=== PATIENT | female | born 1955 | race Caucasian/White ===

== ENCOUNTER 2018-04-22 04:02 | Observation (INO) | payer MEDICARE ==
[2018-04-22 04:28] LABS: #Basophils 0.1 thou/uL (0.0-0.2); #Eosinphils 0.2 thou/uL (0.0-0.7); #Lymphocytes 0.9 thou/uL (1.20-3.40); #Monocytes 0.2 thou/uL (0.11-0.59); #Neutrophils 7.9 thou/uL (1.40-6.50); %Basophils 0.5 % (0.0-1.0); %Eosinophils 2.2 % (0.0-10.0); %Lymphocytes 9.6 % (21.0-51.0); %Monocytes 2.1 % (0.0-10.0); %Neutrophils 85.5 % (42.0-75.0); Hemoglobin 16.9 g/dL (12.0-16.0); Mean Corpuscular HGB CONC 34.1 g/dL (32.0-36.0); Mean Corpuscular Hemoglobin 29.2 pg (27.0-31.0); Mean Corpuscular Volume 85.8 fL (78.0-98.0); Mean Platelet Volume 8.7 fL (7.4-10.4); Platelet Count 299 thou/uL (130-400); RBC Distribution Width 12.2 % (11.5-14.5); Red Blood Cell (RBC) Count 5.78 mill/uL (4.20-5.40); White Blood Cell (WBC) Count 9.2 thou/uL (4.8-10.8)
[2018-04-22] MEDS ORDERED: Ondansetron PF 4 MG/2 ML Vial ONE (04:39)
[2018-04-22] MEDS ORDERED: Morphine 4 MG/ML VIAL ONE (04:39)
[2018-04-22 05:55] LABS: Albumin 3.4 g/dL (3.4-4.8)
[2018-04-22 05:56] LABS: Chloride 100 mmol/L (98-107)
[2018-04-22 05:57] LABS: Calcium 8.8 mg/dL (7.8-10.44); Potassium 3.9 mmol/L (3.5-5.1); Sodium 133 mmol/L (136-145)
[2018-04-22 05:58] LABS: Globulin 2.8 g/dL (2.4-3.5); Glucose 426 mg/dL (80-115); Protein, Total 6.2 g/dL (6.0-8.3)
[2018-04-22 05:59] LABS: Anion Gap 19 mmol/L (10-20); Bilirubin, Total 1.2 mg/dL (0.2-1.2); Carbon Dioxide 18 mmol/L (23-31)
[2018-04-22 06:00] LABS: Alkaline Phosphatase 172 U/L (40-150)
[2018-04-22 06:01] LABS: Calc. Creatinine Clearance 0 mL/min (70-130); Estimated GFR-MDRD 57
[2018-04-22 06:02] LABS: BUN (Urea Nitrogen) 19 mg/dL (9.8-20.1)
[2018-04-22 06:03] LABS: ALT (SGPT) 37 U/L (8-55); AST (SGOT) 111 U/L (5-34)
--- NOTE | 2018-04-22 07:34 | CT ---
CTA OF THE THORAX UTILIZING IV CONTRAST PE PROTOCOL AND 3D REFORMATTED IMAGING: Date: 04/22/18 INDICATION: Dyspnea with chest pain. COMPARISON: Prior single view chest radiograph performed earlier on 04/22/18. FINDINGS: No central or segmental pulmonary embolus is evident. There is hazy ground-glass opacity seen affecting both lungs. There is a 3.0 mm pulmonary nodule within the inferior lingula. There is a 3.0 mm pulmonary nodule le ft lower lobe on image 54 of series 2. There is a 5.0 mm pulmonary nodule within the left lower lobe on image 47 of series 2. There is a 4.0 mm pulmonary nodule in the right lower lobe on image 40 of se jai 2. There is a small, sub-4.0 mm pulmonary nodule in the right lung apex on image 9 of series 2. No confluent air space opacity or pleural effusion is evident. No pathologically enlarged lymph nodes are evident. Visualized upper abdomen reveals no definite acute abnormality. The gallbladder is surgically absent. There is a lobular appearance to the visualized renal parenchyma. No definite acute osseous abnormal ity is evident. IMPRESSION: 1. No central or segmental pulmonary embolus. 2. Nonspecific hazy ground-glass opacity affecting both lungs. This can be seen with atypical infect ious process such as viral illnesses. This also can be seen with hypersensitivity pneumonitis. This c an be seen also with pulmonary edema. There is no overt evidence to suggest heart failure or volume o verload. 3. Nonspecific small pulmonary nodules throughout both lungs. Follow-up CT examination in 6 months i s recommended to document stability. POS: [facility]
[2018-04-22] MEDS ORDERED: Aspirin Chewable 81 MG TAB ONE (07:39)
--- NOTE | 2018-04-22 07:57 | RAD ---
SINGLE VIEW OF THE CHEST: COMPARISON: None. HISTORY: Chest pain. FINDINGS: Single view of the chest shows a normal sized cardiomediastinal silhouette. There is no evidence of c onsolidation, mass, or pleural effusion. Degenerative changes and hardware are seen in the spine. IMPRESSION: No evidence of acute cardiopulmonary disease. POS: [facility]
[2018-04-22 08:23] LABS: Troponin I Less than 0.010 ng/mL (< 0.028)
[2018-04-22] MEDS ORDERED: Acetaminophen 325 MG TAB PO PRN (09:40)
[2018-04-22] MEDS ORDERED: Ondansetron PF 4 MG/2 ML Vial IVP PRN (09:40)
[2018-04-22] MEDS ORDERED: Acetaminophen 650 MG Suppository PR PRN (09:40)
[2018-04-22] MEDS ORDERED: Senokot S 8.6-50 MG TAB PO PRN (09:40)
[2018-04-22] MEDS ORDERED: ADENOSINE 60 MG/20 ML VIAL ONE (10:18)
[2018-04-22] MEDS ORDERED: ISOVUE-370 76%-LOCM 1 ML ONE (10:26)
[2018-04-22 11:32] LABS: Troponin I Less than 0.010 ng/mL (< 0.028)
--- NOTE | 2018-04-22 16:26 | NM ---
RADIONUCLIDE STRESS AND REST MYOCARDIAL PERFUSION SCAN WITH CT ATTENUATION CORRECTION AND SPECT IMAGI NG WITH LEFT VENTRICULAR WALL MOTION EVALUATION AND EJECTION FRACTION: HISTORY: Chest pain. FINDINGS: Very heterogeneous uptake of radiotracer throughout the left ventricular myocardium. Some breast atte nuation on the stress images. No reversibility or perfusion defect reliably demonstrated. QGS analysis of gated SPECT images shows no focal wall motion abnormalities. Adenosine protocol was u sed. Left ventricular ejection fraction calculated at 70%. IMPRESSION: 1. Normal myocardial perfusion scan. 2. Normal LVEF. POS: [facility]
--- NOTE | 2018-04-23 03:04 | SS ---
DATE OF ADMISSION: 04/22/2018 DATE OF DISCHARGE: 04/22/2018 PRIMARY CARE PROVIDER: Britton Royal MD CHIEF COMPLAINT: Chest pain. HISTORY OF PRESENT ILLNESS: Ms. Mora is a pleasant 62-year-old lady, who was seen at [facility] on April 22, 2018. She reports that she has had on and off chest pain over the last 20 years. She reports that it occurs once every few months. She had it today morning. She reports that it was retrosternal, radiating to the back, sharp, 10+ out of 10 at its worst, accompanied by shortness of breath, lightheadedness and nausea. Not accompanied by vomiting. She also reports that she has a chronic neck pain because of a bulged disk. She reports that pain radiates down her left arm. She denies any abdominal pain. She denies any fevers or chills. REVIEW OF SYSTEMS: All other systems reviewed and found to be negative. PAST MEDICAL HISTORY: Hypothyroidism, diabetes mellitus type 2, and hypertension. PAST SURGICAL HISTORY: Partial thyroidectomy, disk repair, titanium plate to neck on left side, and cholecystectomy. PSYCHIATRIC HISTORY: Anxiety. SOCIAL HISTORY: The patient denies tobacco use, alcohol use, or recreational drug use. FAMILY HISTORY: Her father from myocardial infarction. ALLERGIES: ZOLOFT. CURRENT MEDICATIONS: 1. Metformin 1000 mg 2 times a day. 2. Paroxetine 40 mg daily. 3. Atorvastatin 40 mg daily. 4. Levothyroxine 100 mcg daily. PHYSICAL EXAMINATION: GENERAL: On examination, Ms. Mora is awake and alert, not in acute distress. VITAL SIGNS: Blood pressure is 131/74, pulse 99, respiratory rate 18, and oxygen saturation 96% on room air. Earlier, she was tachycardic with a pulse of 124. EYES: No scleral icterus, no conjunctival pallor. ENT: Moist mucosal membranes. No oropharyngeal erythema or exudates. NECK: Supple, nontender, trachea is midline. RESPIRATORY: Accessory muscles of breathing are not active. Chest wall movements are symmetric bilaterally. LUNGS: Clear to auscultation without wheeze, rhonchi, or crepitations. CARDIOVASCULAR: S1 and S2 are heard, regular. Peripheral pulses palpable. No carotid bruit. No pericardial rub. ABDOMEN: Soft, nontender, bowel sounds heard. No hepatomegaly, no splenomegaly. NEUROLOGIC: Cranial nerves 2 through 12 intact, deep tendon reflexes 2+. MUSCULOSKELETAL: Power is 5/5 in all 4 extremities. SKIN: No rashes or subcutaneous nodules. LYMPHATIC: No cervical lymphadenopathy. PSYCHIATRIC: Normal mood, normal affect. The patient is oriented to person, place, and time. LABORATORY DATA: Ms. Mora's labs and investigations were reviewed. I reviewed her electrocardiogram, which shows sinus tachycardia. No ST changes to suggest an acute coronary syndrome. I also reviewed her chest x-ray, which does not show any pulmonary infiltrates. CT angiogram of the chest did not show any central or segmental pulmonary embolus. She has nonspecific small pulmonary nodules throughout the lungs. Followup CT examination in 6 months is recommended by radiologist to document stability. She also had nonspecific hazy ground-glass opacity affecting both lungs, which can be seen with atypical infectious processes such as viral illnesses, hypersensitivity pneumonitis or pulmonary edema. There was no overt evidence to suggest heart failure or volume overload. She has normal white count, elevated hemoglobin of 16.9, normal platelet count, decreased sodium of 133, normal potassium, normal creatinine, elevated glucose of 426, elevated AST of 111, elevated alkaline phosphatase of 172, normal ALT, normal total bilirubin and troponin I that is negative x3. ASSESSMENT AND PLAN: Ms. Mora is a pleasant 62-year-old lady, who was seen at [facility] on April 22, 2018. Her problem list includes : 1. Chest pain: Ms. Mora had CT angiogram of the chest, which did not show any evidence of pulmonary embolism. She went on to have stress test. 2. Abnormal liver function tests: Etiology is unclear. I do not have any old values for reference. She will be advised to follow up with her primary care provider to have the LFTs rechecked. 3. Pulmonary nodules: She will need followup CT scan of the chest in 6 months to evaluate stability of pulmonary nodules. I will advise her to follow up with her primary care provider for the same. 4. Diabetes mellitus type 2: Blood sugars are not optimally controlled. We will add glipizide to her medication regimen. We will advise her to follow up with primary care provider for diabetes management. 5. Dyslipidemia: Continue statin, unless LFTs worsen. I will leave it to the discretion of the primary care provider. HOSPITAL COURSE: Ms. Morgan was admitted to the hospital on observation status. She went on to have nuclear stress test, which was normal myocardial perfusion scan with left ventricular ejection fraction calculated at 70%. She improved clinically in terms of chest pain. She is being discharged home in a stable condition. Many thanks for allowing me to participate in your patient's care. Please feel free to contact me with any questions or concerns. DISCHARGE DESTINATION: Home. Job ID: [id number] [facility]
[2018-04-23] MEDS ORDERED: Aspirin 325 mg Enteric Coated Tablet PO SCH (09:00)
[2018-04-23] MEDS ORDERED: Enoxaparin Sodium 40 MG/0.4 ML SYRINGE SC SCH (09:00)
--- NOTE | 2018-04-25 13:36 | STRESS ---
Acquisition Time: 2018-04-22 13:08:51 Total Exercise Time: 00:04:00 Test Indications: CHEST PAIN Medications: Protocol: ADENOSINE Max HR: 112 BPM 70% of Pred: 159 BPM Max BP: 116/058 mmHG Max Work Load: 1.0 METS RESTING ECG: NORMAL SINUS RHYTHM AT 82 BPM SYMPTOMS: SHORTNESS OF BREATH NORMAL BLOOD PRESSURE RESPONSE ECTOPY: NONE ECG RESPONSE: NO SIGNIFICANT CHANGES INTERPRETATION: AWAIT NUCLEAR IMAGES FOR DEFINITIVE DIAGNOSIS Confirmed by CONG DE DIOS ([id number]), scientific publications editor PALOMO FINE ([id number]) on 04/25/2018 1:35:37 PM Referred By: Bj BEE Confirmed By:CONG DE DIOS
== END 2018-04-22 17:15 | disposition home or self-care (01) ==
LOC: ERS 04:02 → ERHOLD 07:42
PROVIDERS: ADMIT Internal Medicine; ATTEND Internal Medicine
DX: R07.9 Chest pain, unspecified (principal); R91.1 Solitary pulmonary nodule; R94.5 Abnormal results of liver function studies; E11.9 Type 2 diabetes mellitus without complications; E78.5 Hyperlipidemia, unspecified; E03.9 Hypothyroidism, unspecified; I10 Essential (primary) hypertension; Z90.89 Acquired absence of other organs; Z90.49 Acquired absence of other specified parts of digestive tract; Z88.8 Allergy status to other drugs, medicaments and biological substances; Z79.84 Long term (current) use of oral hypoglycemic drugs; Z79.899 Other long term (current) drug therapy; Z98.890 Other specified postprocedural states
CPT/HCPCS: 71045; 71275; 78452; 80053; 84484 ×2; 85025; 93005; 93017; 96361; 96374; 96375; 99285; A9500; 36415; J0153; J2270; J2405; Q9966

== ENCOUNTER 2018-06-08 09:40 | Outpatient (CLI) | payer MEDICARE ==
--- NOTE | 2018-06-08 10:21 | RAD ---
RIGHT SHOULDER THREE VIEWS: History: Acute right shoulder pain. FINDINGS/IMPRESSION: There are degenerative changes in the acromioclavicular joint. No hip fracture, dislocation, or bony destruction is identified. POS: [facility]
--- NOTE | 2018-06-08 11:28 | MRI ---
MRI OF RIGHT SHOULDER PERFORMED WITHOUT CONTRAST ENHANCEMENT: History: Right shoulder pain. FINDINGS: Exam quality is marred by motion artifact. There is moderate arthrosis of the AC joint. There is a high grade undersurface tear involving the chan praspinatus tendon involving more of the anterior fibers. There is only some thin outer bursal sided fibers that appear intact. There is a focal area of approximately 1 cm from its attachment at the gre ater tuberosity where there may actually be a thin pin hole full thickness component. There is a smal l amount of fluid in the subacromial subdeltoid bursa. The infraspinatus tendon does appear intact. T he subscapularis tendon shows tendinosis of the superior fibers and a partial undersurface tear. Due to the motion artifact it is difficult to assess the intraarticular portion of the biceps tendon. It does show tendinosis and findings are suspicious for a slip tear. There is a chronic appearing tear o f the superior labrum associated with this. There are edema changes of the rotator cuff interval with edema changes and effacement of the fat ext ending to beneath the acromion which would suggest an element of capsulitis. Some minimal fluid or ed zahira change associated with the axillary pouch. There are mild arthritic changes of the glenohumeral j oint space seen. There is mild atrophy to the supraspinatus muscle. The remainder of the rotator cuff muscles are fair ly well preserved. IMPRESSION: 1. Somewhat limited examination due to motion artifact. 2. High grade under surface tear of the supraspinatus tendon that involves greater than 50% of the th ickness of the tendon and there is an area approximately 1 cm proximal to the attachment of the great er tuberosity where the bursal fibers become very thin and there may be a pin hole full thickness com ponent to this tear. 3. Partial undersurface tear of the superior fibers of the subscapularis tendon with tendinosis. 4. Chronic appearing slap lesion of the superior labrum. There is tendinosis of the biceps tendon and a possible split tear. It is difficult to assess due to motion. 5. Findings that would suggest an element of capsulitis with edema change in the rotator cuff interva l and some changes also in the region of the axillary pouch. POS: [facility]
== END 2018-06-08 09:41 | disposition home or self-care (01) ==
LOC: SCSMRI 09:40
PROVIDERS: ATTEND Orthopaedic Surgery
DX: M25.511 Pain in right shoulder (principal); M19.011 Primary osteoarthritis, right shoulder; M75.111 Incomplete rotator cuff tear or rupture of right shoulder, not specified as traumatic; M67.813 Other specified disorders of tendon, right shoulder

== ENCOUNTER 2018-08-08 13:23 | Outpatient (CLI) | payer MEDICARE ==
[~2018-08-08 13:23] MED LIST: Gadobenate Dimeglumine 529 MG/1 ML (20ML VIAL) ONE
--- NOTE | 2018-08-08 14:03 | RAD ---
CERVICAL SPINE FOUR VIEWS: 08/08/18 HISTORY: Bilateral neck and shoulder pain times many years. Surgery ten years ago. FINDINGS: There is no prevertebral soft tissue swelling. Predental space is normal. In the neutral position, 2. 4 mm of anterolisthesis of C4 upon C5. Upon flexion, 2.2 mm of anterolisthesis of C4 upon C5. Upon ex tension,1 mm of anterolisthesis of C4 upon C5. Anterior fusion plate with transvertebral body screw a t C5, C6, and C7. Associated disc prosthesis. No perihardware lucency. IMPRESSION: 1. Uncomplicated cervical fusion from C5 through C7. 2. Anterolisthesis of C4 upon C5 as described above. POS: [facility]
--- NOTE | 2018-08-08 14:58 | CT ---
CT CERVICAL SPINE WITHOUT CONTRAST: HISTORY: Bilateral neck and shoulder pain x many years. COMPARISON: None. FINDINGS: There is no craniocervical dissociation. Appropriate alignment of the lateral masses of C1 and C2 as well as the facets. 2.3 mm of anterolisthesis of C3 upon C4. Uncomplicated cervical fusion hardwar e at C5, C6, and C7 with associated prosthesis at C5-C6 and C6-C7. Straightening of normal cervical lordosis is noted. The visualized soft tissue neck structures are unremarkable. Upper mediastinum and lung apices are a lso unremarkable. Limited evaluation of the contents of the central spinal canal and neural foramen due to technique. C2-C3: There is a broad-based disk-osteophyte complex. No significant central canal stenosis. Righ t neural foramen is patent. Mild left foraminal narrowing due to uncovertebral and facet hypertrophy . C3-C4 Broad-based disk-osteophyte complex causes mass effect upon the ventral cord. Mild central ca nal stenosis. Moderate to severe right and left foraminal narrowing due to uncovertebral hypertrophy as well as left facet hypertrophy. C4-C5: Broad-based disk-osteophyte complex abuts the thecal sac. There is some mass effect and defo rmity of the cervical cord. Mild to moderate central canal stenosis. Right neural foramen is patent . Left neural foramen is minimally narrowed due to uncovertebral and facet hypertrophy. C5-C6: There is a broad-based osteophyte ridge with a right paracentral and left paracentral compone nt. There is deformity of the midline aspect of the cord. Mild central canal stenosis. Mild to mod erate right and mild left foraminal narrowing due to uncovertebral hypertrophy. C6-C7: There is a central osteophyte that abuts and probably deforms the ventral cord. Mild central canal stenosis. Moderate bilateral foraminal narrowing due to uncovertebral hypertrophy. C7-T1: No significant central canal stenosis. Neural foramina are patent bilaterally. IMPRESSION: 1. Degenerative changes of the cervical spine as above. 2. Cervical fusion hardware as described above. POS: [facility]
--- NOTE | 2018-08-09 10:11 | MRI ---
MRI CERVICAL SPINE WITH AND WITHOUT CONTRAST: HISTORY: Cervical radiculopathy. Neck pain. Pain radiates to both shoulders. Previous cervical fusion. COMPARISON: None. FINDINGS: Anterior fusion plate with transvertebral body screw at C5, C6, and C7. There is associated metallic susceptibility artifact. Disk prostheses at C5-C6 and C6-C7. Straightening of normal cervical lordosis may, in part, be due to patient position. There is 3.2 mm of anterolisthesis of C4 upon C5. Appropriate T1 marrow signal intensity of the cervical vertebrae. No significant STIR hyperintensity to suggest vertebral body edema or ligamentous injury. The visualized brain parenchyma, cervicomedullary junction, cervical cord, and upper thoracic cord lagos ve normal size and signal intensity. Post contrast images do not demonstrate any abnormal enhancement with regard to the osseous structure s, brain parenchyma, and spinal cord. C2-C3: No significant central canal stenosis. The neural foramina are patent. Mild left facet hype rtrophy. C3-C4: Broad-based disk osteophyte complex causes mass effect upon the thecal sac. Mild to moderate central canal stenosis. There is some deformity and flattening of the ventral cord. No cord signal abnormality. Moderate bilateral foraminal narrowing due to uncovertebral hypertrophy. There is als o hypertrophy of the left facet. C4-C5: Limited evaluation due to motion degradation and metallic susceptibility artifact. Based on the sagittal images, no evidence of high-grade stenosis. The neural foramina cannot be adequately as sessed. Please refer to the CT performed on 08/08/2017 for further details with regard to the neural foramina. C5-C6: No high-grade central canal stenosis or high-grade foraminal narrowing. C6-C7: There is a central osteophyte ridge with moderate central canal stenosis. There is deformity of the cervical cord without cord signal abnormality. Mild bilateral foraminal narrowing. C7-T1: No evidence of high-grade central canal stenosis or high-grade foraminal narrowing. IMPRESSION: 1. Cervical fusion from C5 through C7. Varying degrees of central canal stenosis and neural foramin al narrowing, as detailed above. 2. No abnormal signal intensity with regard to the visualized spinal cord. POS: [facility]
== END 2018-08-08 13:24 | disposition home or self-care (01) ==
LOC: SCSMRI 13:23
PROVIDERS: ATTEND Surgery
DX: M47.812 Spondylosis without myelopathy or radiculopathy, cervical region (principal); M43.12 Spondylolisthesis, cervical region; M48.02 Spinal stenosis, cervical region; Z98.1 Arthrodesis status
CPT/HCPCS: 72050; 72125; 72156; 82565; A9577

== ENCOUNTER 2019-01-09 13:54 | Outpatient (CLI) | payer MEDICARE ==
--- NOTE | 2019-01-09 15:43 | ULT ---
Exam: Transabdominal and endovaginal pelvic ultrasound HISTORY:Familial history of ovarian cancer COMPARISON: None TECHNIQUE: Transabdominal and endovaginal imaging of the pelvis is performed. Ovaries are interrogate d with grayscale, color flow, Doppler imaging and spectral wave form analysis FINDINGS: Uterus: Echogenic focus in the left aspect the uterus measuring 0.4 x 0.5 x 0.6 cm. Nonspecific calci fication. Uterus measurin.8 x 3.1 x 3.4 cm. Endometrium: Heterogeneous echotexture. Endometrium diameter: 0.5 cm. Incidental nabothian cyst. Free fluid: None Right ovary: Normal echotexture Right ovary measurement: 1.2 x 1.2 x 1.8 cm Left ovary: Not appreciated Left ovary measurements: Not applicable Ovarian Doppler: There is vascular flow to the right ovary. IMPRESSION: 1. Possible calcified uterine leiomyoma. 2. Nonvisualization of the left ovary. Given family history no history, nonemergent pelvic MRI is rec ommended
--- NOTE | 2019-01-27 16:50 | MMO ---
Bilateral MAMMO Bilat Screen [facility]. CLINICAL HISTORY: Patient is 63 years old and is seen for screening. The patient has the following family history of breast cancer: niece. The patient has a history of needle biopsy in 2010. VIEWS: The views performed were: bilateral craniocaudal with tomosynthesis and bilateral mediolateral oblique with tomosynthesis. FILMS COMPARED: The present examination has been compared to a prior imaging study performed at [facility] on 07/06/2012. This study has been interpreted with the assistance of computer-aided detection. MAMMOGRAM FINDINGS: There are scattered fibroglandular densities. Finding 1: There are stable benign appearing calcifications seen in both breasts. Finding 2: There is a stable biopsy clip seen in the left breast. There are no suspicious masses, suspicious calcifications, or new areas of architectural distortion. IMPRESSION: THERE IS NO MAMMOGRAPHIC EVIDENCE OF MALIGNANCY. A ROUTINE FOLLOW-UP MAMMOGRAM IN 1 YEAR IS RECOMMENDED. THE RESULTS OF THIS EXAM WERE SENT TO THE PATIENT. ACR BI-RADS Category 2 - Benign finding MAMMOGRAPHY NOTE: 1. A negative mammogram report should not delay a biopsy if a dominant of clinically suspicious mass is present. 2. Approximately 10% to 15% of breast cancers are not detected by mammography. 3. Adenosis and dense breasts may obscure an underlying neoplasm. Reported by: HERMANN NAZARIO MD Electonically Signed: [id number]
== END 2019-01-09 13:55 | disposition home or self-care (01) ==
LOC: BICULT 13:54
PROVIDERS: ATTEND Internal Medicine
DX: Z12.31 Encounter for screening mammogram for malignant neoplasm of breast (principal); Z80.41 Family history of malignant neoplasm of ovary; Z80.3 Family history of malignant neoplasm of breast
CPT/HCPCS: 76856; 77063; 77067

== ENCOUNTER 2019-09-11 14:25 | Outpatient (CLI) | payer MEDICARE ==
--- NOTE | 2019-09-11 16:23 | MRI ---
MRI LEFT WRIST PERFORMED WITHOUT CONTRAST ENHANCEMENT: History: Patient complains of medial and lateral sided pain. FINDINGS: The carpal tunnel region appears unremarkable. The scapholunate, lunotriquetral ligaments appear intact. Triangular fibrocartilage slightly irregular in appearance but I do not see any definite signs of a t ear. There are edema changes within the first dorsal compartment with a thickened appearance to the APL an d EPB tendons with associated tenosynovitis change. Changes are compatible with De Quervain's tenosyn ovitis. In addition there are some changes of mild distal intersection syndrome with some mild tenosynovitis changes of the ECRB and ECRL tendons and the EP tendon. In addition there are some minimal tenosynovi tis changes of the third dorsal compartment. IMPRESSION: 1. Findings compatible with De Quervain's tenosynovitis. 2. Findings suggesting a mild distal intersection syndrome with some mild tenosynovitis change of the second dorsal compartment. 3. Minimal tenosynovitis changes of the third dorsal compartment also incidentally noted. POS: [facility]
== END 2019-09-11 14:26 | disposition home or self-care (01) ==
LOC: BICMRI 14:25
PROVIDERS: ATTEND Orthopaedic Surgery
DX: M25.532 Pain in left wrist (principal)

== ENCOUNTER 2020-12-14 22:29 | Inpatient (IN) | payer MEDICARE ==
[2020-12-14] MEDS ORDERED: Fentanyl CADD 100 ML IV SCH (22:45)
[2020-12-14 22:58] LABS: Actual Bicarbonate (HCO3a) 3.3 mEq/L (22-28); Carboxyhemoglobin (COHb) 0.1 gm% (0.0-3.0); Hemoglobin (Hb) 10.9 g/dL (12.0-16.0); O2 Tension (PaO2), arterial 284.6 mmHg (> 80.0)
[2020-12-14 22:59] LABS: Analyzer IN Cardio ER; Calcium, Ionized (arterial) 1.27 mmol/L (1.12-1.30); Potassium - ABG Lab 5.74 mmol/L (3.70-5.30)
[2020-12-14 23:00] LABS: Base Excess (BEa) -30.9 mEq/L (-2.0 to +3.0); CO2 Tension 23.8 mmHg (35.0-45.0); Puncture Site LRA; pH, Arterial 6.76 (7.35-7.45)
[2020-12-14 23:13] LABS: ALT (SGPT) 20 U/L (8-55); AST (SGOT) 27 U/L (5-34); Albumin 2.6 g/dL (3.4-4.8); Alkaline Phosphatase 92 U/L (40-110); BUN (Urea Nitrogen) 80 mg/dL (9.8-20.1); Bilirubin, Total 0.3 mg/dL (0.2-1.2); Calc. Creatinine Clearance 0 mL/min (70-130); Calcium 9.2 mg/dL (7.8-10.44); Chloride 102 mmol/L (98-107); Globulin 1.9 g/dL (2.4-3.5); Potassium 6.2 mmol/L (3.5-5.1); Protein, Total 4.5 g/dL (5.8-8.1); Sodium 126 mmol/L (136-145)
[2020-12-14 23:16] LABS: Carbon Dioxide Less than 8 mmol/L (23-31); Glucose 652 mg/dL (80-115)
[2020-12-14] MEDS ORDERED: INSULIN REGULAR IN 0.9 % NACL 100 UNIT/100 ML BAG ONE (23:19)
[2020-12-14 23:22] LABS: Band 20 % (5-11); Hemoglobin 10.9 g/dL (12.0-16.0); Lymphocytes 21 % (21-51); MDiff Complete? YES; Mean Corpuscular HGB CONC 31.6 g/dL (32.0-36.0); Mean Corpuscular Hemoglobin 29.6 pg (27.0-31.0); Mean Corpuscular Volume 93.8 fL (78.0-98.0); Mean Platelet Volume 8.9 fL (7.4-10.4); Monocytes 4 % (0-10); Neutrophil 55 % (42-75); Platelet Count 377 thou/uL (130-400); RBC Distribution Width 11.7 % (11.5-14.5); Red Blood Cell (RBC) Count 3.66 mill/uL (4.20-5.40); White Blood Cell (WBC) Count 24.4 thou/uL (4.8-10.8)
[2020-12-14] MEDS ORDERED: Hydrocortisone Sod Succ/PF 100 mg/2 ml Vial ONE (23:28)
[2020-12-14 23:39] LABS: CKMB 9.8 ng/mL (0-6.6)
[2020-12-15] MEDS ORDERED: metroNIDAZOLE 500 MG/100 ML BAG ONE (01:30)
[2020-12-15 02:23] LABS: ALT (SGPT) 22 U/L (8-55); AST (SGOT) 32 U/L (5-34); Albumin 2.7 g/dL (3.4-4.8); Alkaline Phosphatase 100 U/L (40-110); BUN (Urea Nitrogen) 84 mg/dL (9.8-20.1); Bilirubin, Total 0.4 mg/dL (0.2-1.2); Calc. Creatinine Clearance 0 mL/min (70-130); Calcium 8.4 mg/dL (7.8-10.44); Carbon Dioxide Less than 8 mmol/L (23-31); Chloride 97 mmol/L (98-107); Protein, Total 4.7 g/dL (5.8-8.1); Sodium 129 mmol/L (136-145)
[2020-12-15 02:26] LABS: Glucose 716 mg/dL (80-115)
[2020-12-15] MEDS ORDERED: Electrolyte Replacement Protocol 1 EACH IVPB PRN (02:42)
[2020-12-15] MEDS ORDERED: Sodium Chloride 0.9% 1,000 ML IV PRN ×4 (02:42)
[2020-12-15] MEDS ORDERED: Dextrose 5 %-0.45 % NaCl 1,000 ML IV PRN (02:42)
[2020-12-15] MEDS ORDERED: NS 0.9% w/ 20 MEQ KCL 1,000 ML IV PRN ×2 (02:42)
[2020-12-15] MEDS ORDERED: D5 1/2 NS w/20 mEq KCL 1,000 ML IV PRN (02:42)
[2020-12-15] MEDS ORDERED: Sodium Bicarbonate 100 MEQ in Dextrose 5% in Water 1,000 ML IV SCH (02:45)
[2020-12-15] MEDS ORDERED: Sodium Bicarb 50 MEQ/50 ML Abboject 8.4% SYRINGE IVP SCH ×2 (02:45→05:15)
[2020-12-15] MEDS ORDERED: Ondansetron ODT 4 MG TAB PO PRN (02:58)
[2020-12-15] MEDS ORDERED: Acetaminophen 325 MG TAB PO PRN (02:58)
[2020-12-15] MEDS ORDERED: Ondansetron PF 4 MG/2 ML Vial IVP PRN (02:58)
[2020-12-15] MEDS ORDERED: Sodium Bicarbonate 100 MEQ in Sodium Chloride 0.45% 1,000 ML IV SCH (03:00)
[2020-12-15] MEDS ORDERED: Norepinephrine 8 MG/0.9% NS 250 ML IVPB SCH (03:00)
[2020-12-15] MEDS ORDERED: Sodium Bicarbonate 150 MEQ in Sterile Water Injection 1,000 ML IV SCH (03:00)
[2020-12-15 03:52] LABS: BUN (Urea Nitrogen) 88 mg/dL (9.8-20.1); Calc. Creatinine Clearance 0 mL/min (70-130); Calcium 8.3 mg/dL (7.8-10.44); Chloride 97 mmol/L (98-107); Potassium 6.5 mmol/L (3.5-5.1); Sodium 129 mmol/L (136-145)
[2020-12-15 03:54] LABS: Carbon Dioxide Less than 8 mmol/L (23-31); Glucose 739 mg/dL (80-115)
[2020-12-15 04:22] LABS: Hemoglobin 12.2 g/dL (12.0-16.0); Mean Corpuscular HGB CONC 32.2 g/dL (32.0-36.0); Mean Platelet Volume 8.7 fL (7.4-10.4); Platelet Count 392 thou/uL (130-400); RBC Distribution Width 11.7 % (11.5-14.5); White Blood Cell (WBC) Count 34.7 thou/uL (4.8-10.8)
[2020-12-15 04:27] LABS: Lactic Acid 14.9 mmol/L (0.5-2.2)
[2020-12-15] MEDS ORDERED: Sodium Chloride 0.9% 1,000 ML IV SCH (04:30)
[2020-12-15] MEDS ORDERED: Calcium Chloride 1 GM/10 ML Abboject SYRINGE IVP SCH (05:00)
[2020-12-15] MEDS: HUMULIN R 100 UNITS in Sodium Chloride 0.9% 100 ML IVPB SCH (05:27)
[2020-12-15 05:30] LABS: Glucose 689 mg/dL (80-115)
[2020-12-15 06:08] LABS: HBSAg Index 0.25 S/CO (0-0.99); Hep B Core Total Ab Non-Reactive (NonReactive); Hep B Core Total Index 0.08 S/CO (0-0.79); Hep B Surf Ag Non-Reactive S/CO (NonReactive); Hep C IgG Ab Non-Reactive (NonReactive); Hep C Index 0.07 S/CO (0-0.79)
[2020-12-15 06:10] LABS: HBSAB Concentration 237.73 mIU/mL; Hep B Surf AB Reactive (NonReactive)
[2020-12-15 06:29] LABS: Glucose 515 mg/dL (80-115)
[2020-12-15 06:56] LABS: Band 18 % (5-11); Lymphocytes 7 % (21-51); MDiff Complete? YES; Monocytes 5 % (0-10); Neutrophil 70 % (42-75)
[2020-12-15] MEDS: Vasopressin 20 UNIT, Admixture Fee 1 EACH in Sodium Chloride 0.9% 50 ML IV SCH ×2 (07:56→11:11)
[2020-12-15 08:41] LABS: Anion Gap 26 mmol/L (10-20); BUN (Urea Nitrogen) 52 mg/dL (9.8-20.1); Calc. Creatinine Clearance 20 mL/min (70-130); Calcium 8.4 mg/dL (7.8-10.44); Carbon Dioxide 17 mmol/L (23-31); Chloride 100 mmol/L (98-107); Glucose 241 mg/dL (80-115); Sodium 139 mmol/L (136-145)
[2020-12-15 08:51] LABS: Lactic Acid 12.5 mmol/L (0.5-2.2)
[2020-12-15] MEDS ORDERED: Albumin 25% 25 GM/100 ML BOT IVPB PRN (08:51)
[2020-12-15] MEDS: Heparin 5,000 UNITS/ML VIAL SC SCH ×2 (09:00→12:41)
[2020-12-15] MEDS ORDERED: Heparin 10,000 UNITS/ 10 ML VIAL ONE (09:14)
[2020-12-15] MEDS: Norepinephrine 8 MG in Dextrose 5% in Water 242 ML IVPB SCH (10:20)
[2020-12-15 11:11] LABS: Actual Bicarbonate (HCO3a) 15.6 mEq/L (22-28); Base Excess (BEa) -5.1 mEq/L (-2.0 to +3.0); Calcium, Ionized (arterial) 1.04 mmol/L (1.12-1.30); Carboxyhemoglobin (COHb) 0.3 gm% (0.0-3.0); Hemoglobin (Hb) 11.6 g/dL (12.0-16.0); Potassium - ABG Lab 4.06 mmol/L (3.70-5.30); Puncture Site LBA; pH, Arterial 7.53 (7.35-7.45)
[2020-12-15] MEDS ORDERED: Vancomycin HCl 1.25 GM in Sodium Chloride 0.9% 250 ML 250 ML IVPB SCH (11:45)
[2020-12-15] MEDS ORDERED: Vancomycin HCl 500 MG in Sodium Chloride 0.9% 100 ML IVPB SCH (11:45)
[2020-12-15] MEDS ORDERED: Vancomycin HCl 750 MG in Sodium Chloride 0.9% 250 ML 250 ML IVPB SCH (11:45)
[2020-12-15] MEDS ORDERED: Vancomycin 1 GM in Premix Bag 1 BAG IVPB SCH ×2 (11:45→21:00)
[2020-12-15] MEDS: Hydrocortisone Sod Succ/PF 100 mg/2 ml Vial IVP SCH ×2 (12:38→17:39)
[2020-12-15 12:48] LABS: Lactic Acid 10.9 mmol/L (0.5-2.2)
[2020-12-15 13:04] LABS: Anion Gap 26 mmol/L (10-20); BUN (Urea Nitrogen) 51 mg/dL (9.8-20.1); Calc. Creatinine Clearance 19 mL/min (70-130); Calcium 8.2 mg/dL (7.8-10.44); Carbon Dioxide 17 mmol/L (23-31); Chloride 97 mmol/L (98-107); Glucose 137 mg/dL (80-115); Potassium 4.3 mmol/L (3.5-5.1); Sodium 136 mmol/L (136-145)
[2020-12-15] MEDS ORDERED: Cefepime 1 GM in Sodium Chloride 0.9% 100 ML IVPB SCH (14:00)
[2020-12-15] MEDS ORDERED: Sodium Bicarbonate 75 MEQ in Sodium Chloride 0.45% 1,000 ML IV SCH (14:30)
[2020-12-15] MEDS ORDERED: Enoxaparin Sodium 80 MG/0.8 ML SYRINGE SC SCH (15:00)
[2020-12-15] MEDS: Albumin 25% 25 GM/100 ML BOT IVPB SCH ×2 (16:55→22:03)
[2020-12-15] MEDS ORDERED: FLU VACC QS2021-22(6MOS UP)/PF 60 MCG/0.5 ML SYRINGE IM ONE (18:15)
[2020-12-15] MEDS ORDERED: Prevnar 13-Val Conj/PF 0.5 ML SYRINGE IM ONE (18:15)
[2020-12-15 18:50] LABS: Anion Gap 28 mmol/L (10-20); BUN (Urea Nitrogen) 59 mg/dL (9.8-20.1); Calc. Creatinine Clearance 17 mL/min (70-130); Calcium 7.9 mg/dL (7.8-10.44); Carbon Dioxide 17 mmol/L (23-31); Chloride 95 mmol/L (98-107); Glucose 172 mg/dL (80-115); Potassium 4.5 mmol/L (3.5-5.1); Sodium 135 mmol/L (136-145)
[2020-12-15] MEDS: Acetaminophen 650 MG Suppository PR PRN (22:20)
[2020-12-16] MEDS: Hydrocortisone Sod Succ/PF 100 mg/2 ml Vial IVP SCH ×4 (00:38→16:43)
[2020-12-16] MEDS ORDERED: Sodium Bicarbonate 150 MEQ in Dextrose 5% in Water 1,000 ML IV SCH (01:00)
[2020-12-16 04:32] LABS: Lactic Acid 3.2 mmol/L (0.5-2.2)
[2020-12-16 04:48] LABS: AST (SGOT) 43 U/L (5-34); Anion Gap 23 mmol/L (10-20); Bilirubin, Total 0.9 mg/dL (0.2-1.2); Carbon Dioxide 21 mmol/L (23-31); Chloride 93 mmol/L (98-107); Cholesterol 35 mg/dl (< 200 Desired); Potassium 4.2 mmol/L (3.5-5.1); Protein, Total 4.8 g/dL (5.8-8.1); Sodium 133 mmol/L (136-145); Triglycerides 107 mg/dL (Less than 150)
[2020-12-16 04:58] LABS: ALT (SGPT) 22 U/L (8-55); Albumin 3.4 g/dL (3.4-4.8); Alkaline Phosphatase 63 U/L (40-110); BUN (Urea Nitrogen) 65 mg/dL (9.8-20.1); Calc. Creatinine Clearance 16 mL/min (70-130); Globulin 1.4 g/dL (2.4-3.5); Glucose 250 mg/dL (80-115); HDL Cholesterol 8 mg/dL (>60 Neg Risk)
[2020-12-16 05:08] LABS: LDL Cholesterol, Calculated 6 mg/dL
[2020-12-16] MEDS: Albumin 25% 25 GM/100 ML BOT IVPB SCH (05:10)
[2020-12-16 05:11] LABS: Lipase 1199 U/L (8-78)
[2020-12-16] MEDS: HUMULIN R 100 UNITS in Sodium Chloride 0.9% 100 ML IVPB SCH (05:27)
[2020-12-16 05:28] LABS: Cardiac Risk 4.4 (Less than 4.5)
[2020-12-16] MEDS: Norepinephrine 8 MG in Dextrose 5% in Water 242 ML IVPB SCH (05:28)
[2020-12-16 05:30] LABS: #Lymphocytes 0.8 thou/uL (1.20-3.40); #Monocytes 0.6 thou/uL (0.11-0.59); #Neutrophils 11.1 thou/uL (1.40-6.50); %Lymphocytes 6.4 % (21.0-51.0); %Monocytes 5.1 % (0.0-10.0); %Neutrophils 88.5 % (42.0-75.0); Mean Corpuscular Hemoglobin 29.7 pg (27.0-31.0); Mean Corpuscular Volume 82.4 fL (78.0-98.0); Mean Platelet Volume 8.1 fL (7.4-10.4); Platelet Count 79 thou/uL (130-400); RBC Distribution Width 11.9 % (11.5-14.5); Red Blood Cell (RBC) Count 3.04 mill/uL (4.20-5.40); White Blood Cell (WBC) Count 12.6 thou/uL (4.8-10.8)
[2020-12-16 05:37] LABS: Platelet Morphology Comment Appears Decreased
[2020-12-16 07:21] LABS: Actual Bicarbonate (HCO3a) 22.2 mEq/L (22-28); Base Excess (BEa) -0.5 mEq/L (-2.0 to +3.0); CO2 Tension 29.3 mmHg (35.0-45.0); Calcium, Ionized (arterial) 0.86 mmol/L (1.12-1.30); Carboxyhemoglobin (COHb) 0.1 gm% (0.0-3.0); Hemoglobin (Hb) 9.1 g/dL (12.0-16.0); O2 Tension (PaO2), arterial 115.3 mmHg (> 80.0); Potassium - ABG Lab 3.88 mmol/L (3.70-5.30)
[2020-12-16 07:32] LABS: Puncture Site LBA
[2020-12-16 07:33] LABS: ALV-art Gradient 133.275 mmHg (0-20)
[2020-12-16 09:19] LABS: Vancomycin, Trough 30.3 ug/mL
[2020-12-16] MEDS ORDERED: Heparin 10,000 UNITS/ 10 ML VIAL ONE (10:24)
[2020-12-16] MEDS ORDERED: Dextrose 5% in Water 1,000 ML IV PRN (10:27)
[2020-12-16] MEDS ORDERED: Dextrose 50% Abboject 50 ML SYRINGE SLOW IVP PRN (10:27)
[2020-12-16] MEDS ORDERED: Sodium Chloride 0.45% 1,000 ML IV SCH (10:45)
[2020-12-16] MEDS: Sodium Chloride 0.45% 1,000 ML IV SCH ×3 (10:55→20:53)
[2020-12-16] MEDS ORDERED: Fentanyl BOLUS 250 ML IVPB PRN (11:15)
[2020-12-16 11:36] LABS: Fibrinogen 256 mg/dL (253-463)
[2020-12-16 11:37] LABS: INR-International Normal Ratio 1.5; PTT 44.9 sec (22.9-36.1); Prothrombin Time 18.1 sec (12.0-14.7)
[2020-12-16 11:38] LABS: FSP-Qualitative ABNORMAL (Normal)
[2020-12-16 11:45] LABS: FSP-Semiquantitative >320 mcg/mL (Less than 5)
[2020-12-16 11:52] LABS: D-Dimer Test Greater than 20.00 *mcg/mL (0.27-0.43)
[2020-12-16 12:00] LABS: Platelet Count 73 thou/uL (130-400)
[2020-12-16] MEDS ORDERED: Enoxaparin Sodium 80 MG/0.8 ML SYRINGE SC SCH (15:00)
[2020-12-16] MEDS: Cefepime 0.5 GM, Admixture Fee 1 EACH in Sodium Chloride 0.9% 100 ML IVPB SCH (16:40)
[2020-12-17] MEDS: Hydrocortisone Sod Succ/PF 100 mg/2 ml Vial IVP SCH ×4 (00:41→17:35)
[2020-12-17] MEDS: Acetaminophen 650 MG Suppository PR PRN (00:41)
[2020-12-17] MEDS: Sodium Chloride 0.45% 1,000 ML IV SCH ×6 (01:57→22:22)
[2020-12-17] MEDS: HumaLOG 300 UNITS/3 ML VIAL SC PRN ×4 (04:35→22:41)
[2020-12-17 04:54] LABS: Hemoglobin 8.6 g/dL (12.0-16.0); Mean Corpuscular Hemoglobin 29.8 pg (27.0-31.0); Mean Corpuscular Volume 84.9 fL (78.0-98.0); Mean Platelet Volume 9.2 fL (7.4-10.4); Platelet Count 78 thou/uL (130-400); Red Blood Cell (RBC) Count 2.88 mill/uL (4.20-5.40); White Blood Cell (WBC) Count 16.9 thou/uL (4.8-10.8)
[2020-12-17 05:18] LABS: ALT (SGPT) 17 U/L (8-55); AST (SGOT) 32 U/L (5-34); Albumin 2.9 g/dL (3.4-4.8); Alkaline Phosphatase 64 U/L (40-110); Anion Gap 25 mmol/L (10-20); BUN (Urea Nitrogen) 30 mg/dL (9.8-20.1); Bilirubin, Total 0.6 mg/dL (0.2-1.2); Calc. Creatinine Clearance 28 mL/min (70-130); Calcium 5.6 mg/dL (7.8-10.44); Carbon Dioxide 17 mmol/L (23-31); Chloride 95 mmol/L (98-107); Globulin 1.4 g/dL (2.4-3.5); Glucose 249 mg/dL (80-115); Lipase 278 U/L (8-78); Potassium 3.7 mmol/L (3.5-5.1); Protein, Total 4.3 g/dL (5.8-8.1); Sodium 133 mmol/L (136-145)
[2020-12-17 05:26] LABS: Band 46 % (5-11); Lymphocytes 3 % (21-51); MDiff Complete? YES; Neutrophil 51 % (42-75); Platelet Morphology Comment Appears Decreased
[2020-12-17] MEDS ORDERED: Calcium Gluc 4.6 MEQ/10 ML (100 MG/ML) SLOW IVP SCH (06:00)
[2020-12-17 08:09] LABS: Vancomycin, Random 15.1 ug/mL (See Comment)
[2020-12-17] MEDS ORDERED: Sodium Chloride 0.9% (PF) 10 ML VIAL FS PRN (12:00)
[2020-12-17] MEDS: Calcium Carbonate 600 MG + Vit D TAB PO SCH ×2 (14:44→22:21)
[2020-12-17] MEDS ORDERED: Lorazepam 2 MG/ML VIAL SLOW IVP PRN (15:23)
[2020-12-17] MEDS: Cefepime 0.5 GM, Admixture Fee 1 EACH in Sodium Chloride 0.9% 100 ML IVPB SCH (16:08)
[2020-12-17 18:15] LABS: Anion Gap 18 mmol/L (10-20); BUN (Urea Nitrogen) 34 mg/dL (9.8-20.1); Calc. Creatinine Clearance 30 mL/min (70-130); Carbon Dioxide 21 mmol/L (23-31); Chloride 95 mmol/L (98-107); Glucose 244 mg/dL (80-115); Magnesium 1.2 mg/dL (1.6-2.6); Potassium 3.1 mmol/L (3.5-5.1); Sodium 131 mmol/L (136-145)
[2020-12-17 18:18] LABS: Phosphorus 1.9 mg/dL (2.3-4.7)
[2020-12-17 18:30] LABS: Calcium 5.5 mg/dL (7.8-10.44)
[2020-12-17] MEDS ORDERED: Potassium Chloride 20 MEQ TAB PO SCH (18:30)
[2020-12-17] MEDS ORDERED: Potassium Chloride 80 MEQ in Premix Bag 1 BAG IVPB SCH (18:45)
[2020-12-17] MEDS: Potassium Chloride 40 MEQ in Premix Bag 1 BAG IVPB SCH ×2 (22:24→23:59)
[2020-12-18] MEDS: Norepinephrine 8 MG in Dextrose 5% in Water 242 ML IVPB SCH (00:17)
[2020-12-18] MEDS: Sodium Chloride 0.45% 1,000 ML IV SCH ×5 (02:45→20:23)
[2020-12-18] MEDS: Hydrocortisone Sod Succ/PF 100 mg/2 ml Vial IVP SCH ×4 (06:09→17:20)
[2020-12-18] MEDS: HumaLOG 300 UNITS/3 ML VIAL SC PRN ×3 (06:11→22:13)
[2020-12-18 07:22] LABS: #Basophils 0.1 thou/uL (0.0-0.2); #Lymphocytes 0.5 thou/uL (1.20-3.40); #Monocytes 0.6 thou/uL (0.11-0.59); #Neutrophils 13.5 thou/uL (1.40-6.50); %Basophils 0.5 % (0.0-1.0); %Lymphocytes 3.5 % (21.0-51.0); %Monocytes 4.3 % (0.0-10.0); %Neutrophils 91.7 % (42.0-75.0); Hemoglobin 8.7 g/dL (12.0-16.0); Mean Corpuscular HGB CONC 34.3 g/dL (32.0-36.0); Mean Corpuscular Hemoglobin 28.8 pg (27.0-31.0); Mean Platelet Volume 9.3 fL (7.4-10.4); Platelet Count 78 thou/uL (130-400); RBC Distribution Width 11.8 % (11.5-14.5); White Blood Cell (WBC) Count 14.7 thou/uL (4.8-10.8)
[2020-12-18 07:39] LABS: Lactic Acid 1.1 mmol/L (0.5-2.2)
[2020-12-18 07:44] LABS: Albumin 2.8 g/dL (3.4-4.8); Anion Gap 15 mmol/L (10-20); BUN (Urea Nitrogen) 35 mg/dL (9.8-20.1); Bilirubin, Total 0.4 mg/dL (0.2-1.2); Calc. Creatinine Clearance 36 mL/min (70-130); Carbon Dioxide 22 mmol/L (23-31); Chloride 97 mmol/L (98-107); Globulin 1.7 g/dL (2.4-3.5); Glucose 239 mg/dL (80-115); Potassium 3.4 mmol/L (3.5-5.1); Protein, Total 4.5 g/dL (5.8-8.1); Sodium 131 mmol/L (136-145)
[2020-12-18 07:45] LABS: ALT (SGPT) 17 U/L (8-55); AST (SGOT) 25 U/L (5-34); Alkaline Phosphatase 71 U/L (40-110); Lipase 83 U/L (8-78); Magnesium 1.8 mg/dL (1.6-2.6)
[2020-12-18 07:48] LABS: Calcium 4.9 mg/dL (7.8-10.44)
[2020-12-18 07:59] LABS: Vancomycin, Random 16.1 ug/mL (See Comment)
[2020-12-18 08:20] LABS: Actual Bicarbonate (HCO3a) 21.3 mEq/L (22-28); Base Excess (BEa) -1.4 mEq/L (-2.0 to +3.0); CO2 Tension 27.8 mmHg (35.0-45.0); Carboxyhemoglobin (COHb) 0.4 gm% (0.0-3.0); O2 Tension (PaO2), arterial 70.8 mmHg (> 80.0); Potassium - ABG Lab 3.01 mmol/L (3.70-5.30)
[2020-12-18 08:21] LABS: Puncture Site RRA
[2020-12-18] MEDS ORDERED: Potassium Chloride 40 MEQ in Premix Bag 1 BAG IVPB SCH (08:30)
[2020-12-18] MEDS ORDERED: Magnesium 2 GM/50 ML 2 GM in Premix Bag 1 BAG IVPB SCH (08:30)
[2020-12-18] MEDS: Calcium Carbonate 600 MG + Vit D TAB PO SCH ×3 (09:44→20:48)
[2020-12-18] MEDS ORDERED: Ergocalciferol 1.25 MG(50,000 UNITS) CAP PO SCH (11:30)
[2020-12-18] MEDS: Pantoprazole 40 MG VIAL IVP SCH (11:50)
[2020-12-18] MEDS: Cefepime 0.5 GM, Admixture Fee 1 EACH in Sodium Chloride 0.9% 100 ML IVPB SCH (17:16)
[2020-12-19] MEDS: Hydrocortisone Sod Succ/PF 100 mg/2 ml Vial IVP SCH ×4 (00:01→17:34)
[2020-12-19] MEDS: Sodium Chloride 0.45% 1,000 ML IV SCH ×3 (01:35→13:59)
[2020-12-19] MEDS: HumaLOG 300 UNITS/3 ML VIAL SC PRN ×4 (03:36→22:36)
[2020-12-19 04:31] LABS: #Basophils 0.1 thou/uL (0.0-0.2); #Lymphocytes 0.4 thou/uL (1.20-3.40); #Monocytes 0.2 thou/uL (0.11-0.59); #Neutrophils 8.7 thou/uL (1.40-6.50); %Basophils 0.7 % (0.0-1.0); %Eosinophils 0.1 % (0.0-10.0); %Lymphocytes 4.5 % (21.0-51.0); %Neutrophils 92.6 % (42.0-75.0); Hemoglobin 8.2 g/dL (12.0-16.0); Mean Corpuscular HGB CONC 35.3 g/dL (32.0-36.0); Mean Corpuscular Hemoglobin 29.8 pg (27.0-31.0); Mean Corpuscular Volume 84.6 fL (78.0-98.0); Mean Platelet Volume 9.4 fL (7.4-10.4); Platelet Count 87 thou/uL (130-400); RBC Distribution Width 11.8 % (11.5-14.5); Red Blood Cell (RBC) Count 2.74 mill/uL (4.20-5.40); White Blood Cell (WBC) Count 9.4 thou/uL (4.8-10.8)
[2020-12-19 04:42] LABS: ALT (SGPT) 12 U/L (8-55); AST (SGOT) 19 U/L (5-34); Albumin 2.7 g/dL (3.4-4.8); Alkaline Phosphatase 79 U/L (40-110); Anion Gap 17 mmol/L (10-20); BUN (Urea Nitrogen) 32 mg/dL (9.8-20.1); Bilirubin, Total 0.3 mg/dL (0.2-1.2); CRP (Inflammatory) 13.15 mg/dL (= or < 0.5); Calc. Creatinine Clearance 45 mL/min (70-130); Carbon Dioxide 20 mmol/L (23-31); Chloride 98 mmol/L (98-107); Globulin 1.8 g/dL (2.4-3.5); Glucose 284 mg/dL (80-115); Magnesium 1.8 mg/dL (1.6-2.6); Potassium 3.4 mmol/L (3.5-5.1); Protein, Total 4.5 g/dL (5.8-8.1); Sodium 132 mmol/L (136-145)
[2020-12-19 04:46] LABS: Calcium 4.4 mg/dL (7.8-10.44); Phosphorus 1.7 mg/dL (2.3-4.7)
[2020-12-19] MEDS ORDERED: Potassium Phosphate 30 MMOL in Sodium Chloride 0.9% 250 ML 250 ML IVPB SCH (07:45)
[2020-12-19] MEDS ORDERED: Calcium Gluconate 4.6 MEQ in Sodium Chloride 0.9% 100 ML IVPB SCH (07:46)
[2020-12-19 07:57] LABS: Actual Bicarbonate (HCO3a) 18.9 mEq/L (22-28); Calcium, Ionized (arterial) 0.67 mmol/L (1.12-1.30); Carboxyhemoglobin (COHb) 0.3 gm% (0.0-3.0); Hemoglobin (Hb) 9.4 g/dL (12.0-16.0); O2 Tension (PaO2), arterial 76.9 mmHg (> 80.0); Potassium - ABG Lab 3.03 mmol/L (3.70-5.30); pH, Arterial 7.51 (7.35-7.45)
[2020-12-19 07:59] LABS: CO2 Tension 24.1 mmHg (35.0-45.0)
[2020-12-19 08:00] LABS: ALV-art Gradient 178.175 mmHg (0-20); Puncture Site RRA
[2020-12-19] MEDS: Calcium Carbonate 600 MG + Vit D TAB PO SCH ×3 (08:41→20:59)
[2020-12-19] MEDS ORDERED: Iopamidol-370 76% 500 ML 1 ML ONE (09:13)
[2020-12-19] MEDS: Pantoprazole 40 MG VIAL IVP SCH (10:10)
[2020-12-19] MEDS ORDERED: Electrolyte Replacement Protocol FS PRN (10:15)
[2020-12-19] MEDS ORDERED: Potassium Chloride 40 MEQ in Premix Bag 1 BAG IVPB SCH (10:15)
[2020-12-19] MEDS ORDERED: Furosemide 40 MG/4 ML VIAL SLOW IVP SCH (13:45)
[2020-12-19] MEDS: Cefepime 0.5 GM, Admixture Fee 1 EACH in Sodium Chloride 0.9% 100 ML IVPB SCH (17:32)
[2020-12-19] MEDS: Fentanyl 100 MCG/2 ML VIAL SLOW IVP PRN (21:17)
[2020-12-20] MEDS: Hydrocortisone Sod Succ/PF 100 mg/2 ml Vial IVP SCH ×4 (00:22→18:04)
[2020-12-20 03:55] LABS: #Lymphocytes 0.4 thou/uL (1.20-3.40); #Monocytes 0.6 thou/uL (0.11-0.59); %Eosinophils 0.2 % (0.0-10.0); %Lymphocytes 5.2 % (21.0-51.0); %Monocytes 6.8 % (0.0-10.0); %Neutrophils 87.8 % (42.0-75.0); Hemoglobin 8.3 g/dL (12.0-16.0); Mean Corpuscular HGB CONC 34.5 g/dL (32.0-36.0); Mean Corpuscular Hemoglobin 29.7 pg (27.0-31.0); Mean Corpuscular Volume 85.9 fL (78.0-98.0); Mean Platelet Volume 9.6 fL (7.4-10.4); Platelet Count 105 thou/uL (130-400); RBC Distribution Width 11.7 % (11.5-14.5); Red Blood Cell (RBC) Count 2.81 mill/uL (4.20-5.40)
[2020-12-20 04:31] LABS: ALT (SGPT) 14 U/L (8-55); AST (SGOT) 21 U/L (5-34); Albumin 2.8 g/dL (3.4-4.8); Alkaline Phosphatase 71 U/L (40-110); Anion Gap 16 mmol/L (10-20); BUN (Urea Nitrogen) 29 mg/dL (9.8-20.1); Bilirubin, Total 0.4 mg/dL (0.2-1.2); CRP (Inflammatory) 11.21 mg/dL (= or < 0.5); Calc. Creatinine Clearance 57 mL/min (70-130); Calcium 5.1 mg/dL (7.8-10.44); Carbon Dioxide 22 mmol/L (23-31); Chloride 101 mmol/L (98-107); Globulin 1.8 g/dL (2.4-3.5); Glucose 202 mg/dL (80-115); Magnesium 1.3 mg/dL (1.6-2.6); Phosphorus 2.5 mg/dL (2.3-4.7); Potassium 3.2 mmol/L (3.5-5.1); Protein, Total 4.6 g/dL (5.8-8.1); Sodium 136 mmol/L (136-145)
[2020-12-20] MEDS: HumaLOG 300 UNITS/3 ML VIAL SC PRN ×3 (05:34→12:09)
[2020-12-20] MEDS: Fentanyl 100 MCG/2 ML VIAL SLOW IVP PRN (05:35)
[2020-12-20] MEDS ORDERED: Potassium Chloride 40 MEQ in Sodium Chloride 0.9% 250 ML 250 ML IVPB SCH (08:00)
[2020-12-20] MEDS ORDERED: Magnesium Sulfate 4 GM in Sodium Chloride 0.9% 250 ML 250 ML IVPB SCH (08:00)
[2020-12-20] MEDS ORDERED: Calcium Gluconate 9.2 MEQ in Sodium Chloride 0.9% 100 ML IVPB SCH (08:31)
[2020-12-20] MEDS: Calcium Carbonate 600 MG + Vit D TAB PO SCH ×3 (09:13→20:39)
[2020-12-20] MEDS: Pantoprazole 40 MG GRANULES PACKET FS SCH (09:13)
[2020-12-20] MEDS: Enoxaparin Sodium 100 MG/ML SYRINGE SC SCH (09:13)
[2020-12-20] MEDS: Sodium Chloride 0.45% 1,000 ML IV SCH (09:21)
[2020-12-20 13:58] LABS: Vancomycin, Random 7.1 ug/mL (See Comment)
[2020-12-20] MEDS ORDERED: Vancomycin 1.5 GRAM/300 ML BAG 1.5 GM in Premix Bag 1 BAG IVPB SCH (14:00)
[2020-12-20] MEDS: Morphine 4 MG/ML VIAL SLOW IVP PRN ×2 (16:47→20:39)
[2020-12-20] MEDS: Cefepime 1 GM, Admixture Fee 1 EACH in Sodium Chloride 0.9% 100 ML IVPB SCH (16:51)
[2020-12-21] MEDS: Hydrocortisone Sod Succ/PF 100 mg/2 ml Vial IVP SCH ×4 (01:04→21:25)
[2020-12-21 05:31] LABS: ALT (SGPT) 17 U/L (8-55); AST (SGOT) 27 U/L (5-34); Alkaline Phosphatase 98 U/L (40-110); Anion Gap 28 mmol/L (10-20); BUN (Urea Nitrogen) 23 mg/dL (9.8-20.1); Bilirubin, Total 0.5 mg/dL (0.2-1.2); CRP (Inflammatory) 17.72 mg/dL (= or < 0.5); Calc. Creatinine Clearance 58 mL/min (70-130); Carbon Dioxide 11 mmol/L (23-31); Chloride 105 mmol/L (98-107); Globulin 2.4 g/dL (2.4-3.5); Glucose 273 mg/dL (80-115); Magnesium 1.6 mg/dL (1.6-2.6); Phosphorus 3.1 mg/dL (2.3-4.7); Potassium 3.2 mmol/L (3.5-5.1); Protein, Total 5.4 g/dL (5.8-8.1); Sodium 141 mmol/L (136-145)
[2020-12-21 05:40] LABS: Band 10 % (5-11); Hemoglobin 9.5 g/dL (12.0-16.0); Lymphocytes 4 % (21-51); MDiff Complete? YES; Mean Corpuscular HGB CONC 34.2 g/dL (32.0-36.0); Mean Corpuscular Hemoglobin 30.4 pg (27.0-31.0); Mean Platelet Volume 9.7 fL (7.4-10.4); Metamyelocyte 1 % (0-0); Monocytes 5 % (0-10); Neutrophil 80 % (42-75); Platelet Count 176 thou/uL (130-400); Platelet Morphology Comment Appears Adequate; RBC Distribution Width 12.3 % (11.5-14.5)
[2020-12-21] MEDS: Sodium Chloride 0.45% 1,000 ML IV SCH (05:54)
[2020-12-21] MEDS: HumaLOG 300 UNITS/3 ML VIAL SC PRN (06:30)
[2020-12-21] MEDS ORDERED: Sodium Bicarbonate 150 MEQ in Dextrose 5% in Water 1,000 ML IV SCH (08:00)
[2020-12-21] MEDS ORDERED: Potassium Chloride 40 MEQ in Sodium Chloride 0.9% 250 ML 250 ML IVPB SCH (08:00)
[2020-12-21] MEDS ORDERED: Furosemide 20 MG/2 ML VIAL SLOW IVP SCH ×2 (09:00→16:45)
[2020-12-21] MEDS ORDERED: Magnesium 2 GM/50 ML 2 GM in Premix Bag 1 BAG IVPB SCH (09:00)
[2020-12-21] MEDS: Pantoprazole 40 MG GRANULES PACKET FS SCH (09:30)
[2020-12-21] MEDS: Calcium Carbonate 600 MG + Vit D TAB PO SCH (09:30)
[2020-12-21] MEDS: Enoxaparin Sodium 100 MG/ML SYRINGE SC SCH ×2 (09:30→21:25)
[2020-12-21 16:21] LABS: Anion Gap 28 mmol/L (10-20); BUN (Urea Nitrogen) 21 mg/dL (9.8-20.1); Calc. Creatinine Clearance 61 mL/min (70-130); Calcium 6.4 mg/dL (7.8-10.44); Carbon Dioxide 10 mmol/L (23-31); Chloride 107 mmol/L (98-107); Glucose 288 mg/dL (80-115); Potassium 3.2 mmol/L (3.5-5.1); Sodium 142 mmol/L (136-145)
[2020-12-21] MEDS: Cefepime 1 GM, Admixture Fee 1 EACH in Sodium Chloride 0.9% 100 ML IVPB SCH (17:14)
[2020-12-21 18:57] LABS: SARS-CoV-2 PCR by NAA Not Detected (NotDetected)
[2020-12-21] MEDS: Morphine 4 MG/ML VIAL SLOW IVP PRN (21:40)
[2020-12-21] MEDS ORDERED: Potassium Chloride 40 MEQ in Premix Bag 1 BAG IVPB SCH (23:30)
[2020-12-22] MEDS: HumaLOG 300 UNITS/3 ML VIAL SC PRN ×4 (00:19→18:11)
[2020-12-22] MEDS: Hydrocortisone Sod Succ/PF 100 mg/2 ml Vial IVP SCH ×4 (01:04→17:19)
[2020-12-22] MEDS ORDERED: Metoprolol Tartrate 5 MG/5 ML VIAL ONE (03:55)
[2020-12-22] MEDS ORDERED: Metoprolol Tartrate 5 MG/5 ML VIAL IVP SCH (04:15)
[2020-12-22] MEDS: Diltiazem HCl 125 MG, Admixture Fee 1 EACH in Sodium Chloride 0.9% 100 ML IVPB SCH ×2 (04:30→23:37)
[2020-12-22] MEDS ORDERED: Albuterol Sulfate 1.25 MG/3 ML NEB NEB PRN (04:40)
[2020-12-22 04:41] LABS: Hemoglobin 9.2 g/dL (12.0-16.0); Mean Corpuscular Hemoglobin 29.3 pg (27.0-31.0); Mean Corpuscular Volume 86.3 fL (78.0-98.0); Mean Platelet Volume 8.8 fL (7.4-10.4); Platelet Count 193 thou/uL (130-400); RBC Distribution Width 12.4 % (11.5-14.5); Red Blood Cell (RBC) Count 3.13 mill/uL (4.20-5.40); White Blood Cell (WBC) Count 25.1 thou/uL (4.8-10.8)
[2020-12-22] MEDS: Levothyroxine Sodium 100 MCG TAB PO SCH (04:52)
[2020-12-22 04:54] LABS: Band 32 % (5-11); MDiff Complete? YES; Metamyelocyte 1 % (0-0); Monocytes 5 % (0-10); Neutrophil 62 % (42-75); Platelet Morphology Comment Appears Adequate
[2020-12-22 05:05] LABS: Anion Gap 27 mmol/L (10-20); BUN (Urea Nitrogen) 20 mg/dL (9.8-20.1); Calc. Creatinine Clearance 57 mL/min (70-130); Calcium 7.4 mg/dL (7.8-10.44); Carbon Dioxide 13 mmol/L (23-31); Chloride 107 mmol/L (98-107); Glucose 344 mg/dL (80-115); Magnesium 1.2 mg/dL (1.6-2.6); Phosphorus 2.7 mg/dL (2.3-4.7); Potassium 3.3 mmol/L (3.5-5.1); Sodium 144 mmol/L (136-145)
[2020-12-22] MEDS ORDERED: Magnesium 2 GM/50 ML 2 GM in Premix Bag 1 BAG IVPB SCH (06:00)
[2020-12-22] MEDS ORDERED: Potassium Chloride 20 MEQ TAB PO SCH ×2 (06:00→12:15)
[2020-12-22] MEDS ORDERED: Potassium Bicarbonate/Cit Ac 20 MEQ TAB PO SCH (06:15)
[2020-12-22] MEDS ORDERED: Potassium Chloride 40 MEQ in Sodium Chloride 0.9% 250 ML 250 ML IVPB SCH (08:00)
[2020-12-22] MEDS: PARoxetine 20 MG TAB PO SCH (08:17)
[2020-12-22] MEDS: Enoxaparin Sodium 100 MG/ML SYRINGE SC SCH ×2 (08:18→21:40)
[2020-12-22] MEDS: Pantoprazole 40 MG GRANULES PACKET FS SCH (08:18)
[2020-12-22] MEDS ORDERED: Magnesium Sulfate 4 GM in Sodium Chloride 0.9% 250 ML 250 ML IVPB SCH (09:00)
[2020-12-22] MEDS ORDERED: Furosemide 20 MG/2 ML VIAL SLOW IVP SCH (12:15)
[2020-12-22] MEDS ORDERED: Sodium Bicarbonate 150 MEQ in Dextrose 5% in Water 1,000 ML IV SCH (12:45)
[2020-12-22] MEDS: Furosemide 20 MG/2 ML VIAL SLOW IVP SCH (14:12)
[2020-12-22] MEDS: Potassium Chloride 20 MEQ TAB PO SCH (17:19)
[2020-12-22] MEDS: Cefepime 1 GM, Admixture Fee 1 EACH in Sodium Chloride 0.9% 100 ML IVPB SCH (17:44)
[2020-12-22] MEDS: Morphine 4 MG/ML VIAL SLOW IVP PRN (21:41)
[2020-12-23] MEDS: Hydrocortisone Sod Succ/PF 100 mg/2 ml Vial IVP SCH ×3 (00:27→12:30)
[2020-12-23] MEDS: HumaLOG 300 UNITS/3 ML VIAL SC PRN ×4 (00:28→18:38)
[2020-12-23] MEDS: Levothyroxine Sodium 100 MCG TAB PO SCH (05:08)
[2020-12-23] MEDS: Morphine 4 MG/ML VIAL SLOW IVP PRN (05:09)
[2020-12-23 05:46] LABS: Anion Gap 18 mmol/L (10-20); BUN (Urea Nitrogen) 19 mg/dL (9.8-20.1); Calc. Creatinine Clearance 59 mL/min (70-130); Calcium 7.7 mg/dL (7.8-10.44); Carbon Dioxide 28 mmol/L (23-31); Chloride 103 mmol/L (98-107); Glucose 397 mg/dL (80-115); Magnesium 1.3 mg/dL (1.6-2.6); Phosphorus 2.2 mg/dL (2.3-4.7); Sodium 146 mmol/L (136-145)
[2020-12-23 05:48] LABS: Potassium 2.8 mmol/L (3.5-5.1)
[2020-12-23] MEDS: Furosemide 20 MG/2 ML VIAL SLOW IVP SCH (06:00)
[2020-12-23] MEDS ORDERED: Magnesium Sulfate 4 GM in Sodium Chloride 0.9% 250 ML 250 ML IVPB SCH (06:15)
[2020-12-23] MEDS: Potassium Chloride 20 MEQ TAB PO SCH ×4 (07:15→17:16)
[2020-12-23] MEDS: Pantoprazole 40 MG GRANULES PACKET FS SCH (08:37)
[2020-12-23] MEDS: Enoxaparin Sodium 100 MG/ML SYRINGE SC SCH ×2 (08:37→20:46)
[2020-12-23] MEDS: PARoxetine 20 MG TAB PO SCH (08:38)
[2020-12-23] MEDS ORDERED: Digoxin 0.5 MG/2 ML AMP SLOW IVP SCH (10:45)
[2020-12-23] MEDS ORDERED: Diltiazem HCl 125 MG, Admixture Fee 1 EACH in Sodium Chloride 0.9% 100 ML IVPB SCH (10:59)
[2020-12-23] MEDS ORDERED: Amiodarone 450 MG in Dextrose 5% in Water 250 ML IVPB SCH (13:45)
[2020-12-23] MEDS: Lantus 1000 UNITS/10 ML VIAL SC SCH ×2 (13:59→20:44)
[2020-12-23] MEDS ORDERED: Amiodarone 150 MG, Admixture Fee 1 EACH in Dextrose 5% in Water 100 ML IVPB SCH (15:15)
[2020-12-23] MEDS: Cefepime 1 GM, Admixture Fee 1 EACH in Sodium Chloride 0.9% 100 ML IVPB SCH (17:16)
[2020-12-24] MEDS: HumaLOG 300 UNITS/3 ML VIAL SC PRN ×4 (00:05→18:59)
[2020-12-24] MEDS: Hydrocortisone Sod Succ/PF 100 mg/2 ml Vial IVP SCH ×2 (01:19→13:05)
[2020-12-24] MEDS ORDERED: Amiodarone 450 MG in Dextrose 5% in Water 250 ML IVPB SCH (04:45)
[2020-12-24] MEDS: Levothyroxine Sodium 100 MCG TAB PO SCH (05:01)
[2020-12-24 06:00] LABS: Calcium 7.4 mg/dL (7.8-10.44); Chloride 102 mmol/L (98-107); Sodium 146 mmol/L (136-145)
[2020-12-24 06:10] LABS: Anion Gap 19 mmol/L (10-20)
[2020-12-24 06:48] LABS: BUN (Urea Nitrogen) 19 mg/dL (9.8-20.1); Calc. Creatinine Clearance 68 mL/min (70-130); Glucose 260 mg/dL (80-115); Magnesium 1.1 mg/dL (1.6-2.6); Phosphorus 1.4 mg/dL (2.3-4.7)
[2020-12-24 06:59] LABS: Carbon Dioxide 28 mmol/L (23-31)
[2020-12-24] MEDS ORDERED: Potassium Chloride 20 MEQ TAB PO SCH (07:00)
[2020-12-24] MEDS ORDERED: Magnesium Sulfate 4 GM in Sodium Chloride 0.9% 250 ML 250 ML IVPB SCH (07:15)
[2020-12-24 08:53] LABS: Hemoglobin 8.9 g/dL (12.0-16.0); MDiff Complete? YES; Mean Corpuscular HGB CONC 34.1 g/dL (32.0-36.0); Mean Corpuscular Hemoglobin 29.4 pg (27.0-31.0); Mean Corpuscular Volume 86.2 fL (78.0-98.0); Mean Platelet Volume 9.4 fL (7.4-10.4); Platelet Count 28 thou/uL (130-400); RBC Distribution Width 12.8 % (11.5-14.5); Red Blood Cell (RBC) Count 3.02 mill/uL (4.20-5.40); White Blood Cell (WBC) Count 19.9 thou/uL (4.8-10.8)
[2020-12-24 08:54] LABS: Band 5 % (5-11); Large Platelets SLIGHT; Lymphocytes 3 % (21-51); Monocytes 5 % (0-10); Neutrophil 87 % (42-75); Nucleated RBC 2 % (0); Platelet Morphology Comment Appears Decreased; Polychromasia SLIGHT = 2-3 cells (100X) (0-2/hpf); Vacuoles SLIGHT
[2020-12-24] MEDS: Furosemide 20 MG/2 ML VIAL SLOW IVP SCH (10:14)
[2020-12-24] MEDS: Lantus 1000 UNITS/10 ML VIAL SC SCH ×2 (10:14→22:49)
[2020-12-24] MEDS: Enoxaparin Sodium 100 MG/ML SYRINGE SC SCH ×2 (10:15→16:46)
[2020-12-24] MEDS: Pantoprazole 40 MG GRANULES PACKET FS SCH (10:21)
[2020-12-24] MEDS: Potassium Chloride 20 MEQ TAB PO SCH ×2 (10:22→16:45)
[2020-12-24] MEDS: PHOS-NAK 1 PKT PACK PO SCH ×4 (10:22→20:14)
[2020-12-24] MEDS: Cefepime 1 GM, Admixture Fee 1 EACH in Sodium Chloride 0.9% 100 ML IVPB SCH (16:45)
[2020-12-24] MEDS: Magnesium Oxide 400 MG TAB PO SCH (20:09)
[2020-12-24] MEDS ORDERED: Amiodarone 200 MG TAB PO SCH (21:00)
[2020-12-25] MEDS: HumaLOG 300 UNITS/3 ML VIAL SC PRN ×4 (00:33→18:43)
[2020-12-25] MEDS: Hydrocortisone Sod Succ/PF 100 mg/2 ml Vial IVP SCH ×2 (01:08→11:19)
[2020-12-25 04:59] LABS: Platelet Count 20 thou/uL (130-400)
[2020-12-25 05:17] LABS: Anion Gap 14 mmol/L (10-20); BUN (Urea Nitrogen) 21 mg/dL (9.8-20.1); Calc. Creatinine Clearance 64 mL/min (70-130); Calcium 7.3 mg/dL (7.8-10.44); Carbon Dioxide 31 mmol/L (23-31); Chloride 101 mmol/L (98-107); Glucose 308 mg/dL (80-115); Potassium 3.3 mmol/L (3.5-5.1); Sodium 143 mmol/L (136-145)
[2020-12-25 05:29] LABS: Band 9 % (5-11); Lymphocytes 6 % (21-51); MDiff Complete? YES; Mean Corpuscular HGB CONC 35.2 g/dL (32.0-36.0); Mean Corpuscular Hemoglobin 30.2 pg (27.0-31.0); Mean Corpuscular Volume 85.8 fL (78.0-98.0); Mean Platelet Volume 10.5 fL (7.4-10.4); Monocytes 3 % (0-10); Neutrophil 82 % (42-75); Nucleated RBC 1 % (0); Platelet Morphology Comment Appears Decreased; Polychromasia SLIGHT = 2-3 cells (100X) (0-2/hpf); RBC Distribution Width 13.1 % (11.5-14.5); Red Blood Cell (RBC) Count 2.97 mill/uL (4.20-5.40); White Blood Cell (WBC) Count 18.4 thou/uL (4.8-10.8)
[2020-12-25] MEDS: Levothyroxine Sodium 100 MCG TAB PO SCH (06:27)
[2020-12-25] MEDS ORDERED: Potassium Chloride 20 MEQ TAB PO SCH (07:00)
[2020-12-25] MEDS: Pantoprazole 40 MG GRANULES PACKET FS SCH (08:42)
[2020-12-25] MEDS: Amiodarone 200 MG TAB PO SCH ×3 (08:42→22:35)
[2020-12-25] MEDS: Magnesium Oxide 400 MG TAB PO SCH ×2 (08:42→20:43)
[2020-12-25] MEDS: PARoxetine 20 MG TAB PO SCH (08:42)
[2020-12-25] MEDS: Furosemide 20 MG/2 ML VIAL SLOW IVP SCH (08:43)
[2020-12-25] MEDS: Lantus 1000 UNITS/10 ML VIAL SC SCH ×3 (08:43→20:43)
[2020-12-25] MEDS: Potassium Chloride 20 MEQ TAB PO SCH ×2 (08:44→17:03)
[2020-12-25] MEDS ORDERED: Ergocalciferol 1.25 MG(50,000 UNITS) CAP PO SCH (09:00)
[2020-12-25] MEDS ORDERED: Lantus 1000 UNITS/10 ML VIAL SC SCH ×2 (10:30→18:45)
[2020-12-25] MEDS: Cefepime 1 GM, Admixture Fee 1 EACH in Sodium Chloride 0.9% 100 ML IVPB SCH (17:02)
[2020-12-25] MEDS: Famotidine 20 MG TAB PO SCH (20:43)
[2020-12-26] MEDS: Hydrocortisone Sod Succ/PF 100 mg/2 ml Vial IVP SCH ×2 (00:28→11:44)
[2020-12-26] MEDS: HumaLOG 300 UNITS/3 ML VIAL SC PRN ×3 (00:29→23:58)
[2020-12-26 04:48] LABS: #Lymphocytes 1.3 thou/uL (1.20-3.40); #Neutrophils 15.3 thou/uL (1.40-6.50); %Basophils 0.1 % (0.0-1.0); %Eosinophils 0.2 % (0.0-10.0); %Lymphocytes 7.5 % (21.0-51.0); %Monocytes 5.4 % (0.0-10.0); %Neutrophils 86.8 % (42.0-75.0); Mean Corpuscular HGB CONC 32.6 g/dL (32.0-36.0); Mean Corpuscular Hemoglobin 28.8 pg (27.0-31.0); Mean Corpuscular Volume 88.3 fL (78.0-98.0); Mean Platelet Volume 11.9 fL (7.4-10.4); Platelet Count 18 thou/uL (130-400); RBC Distribution Width 13.8 % (11.5-14.5); Red Blood Cell (RBC) Count 3.11 mill/uL (4.20-5.40); White Blood Cell (WBC) Count 17.6 thou/uL (4.8-10.8)
[2020-12-26 05:01] LABS: Anion Gap 14 mmol/L (10-20); BUN (Urea Nitrogen) 27 mg/dL (9.8-20.1); Calc. Creatinine Clearance 56 mL/min (70-130); Carbon Dioxide 30 mmol/L (23-31); Chloride 99 mmol/L (98-107); Glucose 332 mg/dL (80-115); Potassium 4.4 mmol/L (3.5-5.1); Sodium 139 mmol/L (136-145)
[2020-12-26] MEDS: Levothyroxine Sodium 100 MCG TAB PO SCH (06:02)
[2020-12-26] MEDS: Famotidine 20 MG TAB PO SCH (09:33)
[2020-12-26] MEDS: Amiodarone 200 MG TAB PO SCH ×2 (09:33→20:51)
[2020-12-26] MEDS: Potassium Chloride 20 MEQ TAB PO SCH ×2 (09:33→18:11)
[2020-12-26] MEDS: Furosemide 20 MG/2 ML VIAL SLOW IVP SCH (09:33)
[2020-12-26] MEDS: Lantus 1000 UNITS/10 ML VIAL SC SCH (09:34)
[2020-12-26] MEDS: PARoxetine 20 MG TAB PO SCH (09:35)
[2020-12-26] MEDS: Magnesium Oxide 400 MG TAB PO SCH ×2 (09:35→20:51)
[2020-12-26] MEDS ORDERED: Dextrose 5% in Water 1,000 ML IV PRN (13:14)
[2020-12-26] MEDS ORDERED: Dextrose 50% Abboject 50 ML SYRINGE SLOW IVP PRN (13:14)
[2020-12-26] MEDS ORDERED: Lantus 1000 UNITS/10 ML VIAL SC SCH (21:00)
[2020-12-27 05:10] LABS: Anion Gap 15 mmol/L (10-20); BUN (Urea Nitrogen) 32 mg/dL (9.8-20.1); Calc. Creatinine Clearance 54 mL/min (70-130); Calcium 8.4 mg/dL (7.8-10.44); Carbon Dioxide 30 mmol/L (23-31); Chloride 96 mmol/L (98-107); Glucose 326 mg/dL (80-115); Potassium 4.2 mmol/L (3.5-5.1); Sodium 137 mmol/L (136-145)
[2020-12-27 05:59] LABS: #Monocytes 0.8 thou/uL (0.11-0.59); #Neutrophils 12.5 thou/uL (1.40-6.50); %Eosinophils 0.3 % (0.0-10.0); %Lymphocytes 7.3 % (21.0-51.0); %Monocytes 5.5 % (0.0-10.0); %Neutrophils 86.9 % (42.0-75.0); Hemoglobin 8.5 g/dL (12.0-16.0); MDiff Complete? YES; Mean Corpuscular Hemoglobin 29.4 pg (27.0-31.0); Mean Corpuscular Volume 89.2 fL (78.0-98.0); Platelet Count 30 thou/uL (130-400); Platelet Morphology Comment Appears Decreased; Polychromasia SLIGHT = 2-3 cells (100X) (0-2/hpf); RBC Distribution Width 13.9 % (11.5-14.5); Red Blood Cell (RBC) Count 2.89 mill/uL (4.20-5.40); White Blood Cell (WBC) Count 14.4 thou/uL (4.8-10.8)
[2020-12-27] MEDS: Levothyroxine Sodium 100 MCG TAB PO SCH (06:09)
[2020-12-27] MEDS ORDERED: Lantus 1000 UNITS/10 ML VIAL SC SCH (09:00)
[2020-12-27] MEDS ORDERED: Hydrocortisone Sod Succ/PF 100 mg/2 ml Vial IVP SCH (09:00)
[2020-12-27] MEDS: Furosemide 20 MG TAB PO SCH (09:17)
[2020-12-27] MEDS: Potassium Chloride 20 MEQ TAB PO SCH (09:17)
[2020-12-27] MEDS: Famotidine 20 MG TAB PO SCH (09:17)
[2020-12-27] MEDS: Magnesium Oxide 400 MG TAB PO SCH ×3 (09:18→20:46)
[2020-12-27] MEDS: PARoxetine 20 MG TAB PO SCH (09:18)
[2020-12-27] MEDS: HumaLOG 300 UNITS/3 ML VIAL SC PRN ×2 (13:13→23:59)
[2020-12-27] MEDS: Aluminum & Magnesium Hydroxide 60 ML, diphenhydrAMINE 150 MG, Lidocaine 2% Viscous Solu... SSW SCH ×2 (19:15→20:40)
[2020-12-27] MEDS: Lantus 1000 UNITS/10 ML VIAL SC SCH (20:40)
[2020-12-28] MEDS: HumaLOG 300 UNITS/3 ML VIAL SC PRN ×3 (05:59→22:55)
[2020-12-28] MEDS: Levothyroxine Sodium 100 MCG TAB PO SCH (06:00)
[2020-12-28 06:26] LABS: Hemoglobin 8.1 g/dL (12.0-16.0); Platelet Count 44 thou/uL (130-400)
[2020-12-28] MEDS: Furosemide 20 MG TAB PO SCH (08:22)
[2020-12-28] MEDS: Magnesium Oxide 400 MG TAB PO SCH ×2 (08:23→22:54)
[2020-12-28] MEDS: Famotidine 20 MG TAB PO SCH (08:23)
[2020-12-28] MEDS: PARoxetine 20 MG TAB PO SCH (08:23)
[2020-12-28] MEDS: Potassium Chloride 20 MEQ TAB PO SCH (08:24)
[2020-12-28] MEDS: Aluminum & Magnesium Hydroxide 60 ML, diphenhydrAMINE 150 MG, Lidocaine 2% Viscous Solu... SSW SCH ×3 (08:25→22:54)
[2020-12-28] MEDS: Lantus 1000 UNITS/10 ML VIAL SC SCH ×2 (08:35→22:55)
[2020-12-28] MEDS ORDERED: Amino Acids 4.25 %/Dextrose 5% 2,000 ML BAG IV SCH (17:00)
[2020-12-28] MEDS: Amino Acids 4.25 %/Dextrose 5% 1,000 ML IV SCH (17:31)
[2020-12-28] MEDS: Benzocaine (Dental) 7 GM TUBE TOP PRN (22:55)
[2020-12-29 06:35] LABS: #Lymphocytes 0.8 thou/uL (1.20-3.40); #Monocytes 0.7 thou/uL (0.11-0.59); #Neutrophils 8.5 thou/uL (1.40-6.50); %Basophils 0.1 % (0.0-1.0); %Eosinophils 0.3 % (0.0-10.0); %Lymphocytes 7.8 % (21.0-51.0); %Monocytes 6.8 % (0.0-10.0); %Neutrophils 85.1 % (42.0-75.0); Hemoglobin 8.5 g/dL (12.0-16.0); Mean Corpuscular HGB CONC 33.9 g/dL (32.0-36.0); Mean Corpuscular Hemoglobin 29.8 pg (27.0-31.0); Mean Platelet Volume 10.4 fL (7.4-10.4); Platelet Count 46 thou/uL (130-400); RBC Distribution Width 13.8 % (11.5-14.5); Red Blood Cell (RBC) Count 2.84 mill/uL (4.20-5.40)
[2020-12-29] MEDS: Levothyroxine Sodium 100 MCG TAB PO SCH ×2 (06:38→07:50)
[2020-12-29] MEDS: HumaLOG 300 UNITS/3 ML VIAL SC PRN ×3 (06:40→16:16)
[2020-12-29] MEDS: Amino Acids 4.25 %/Dextrose 5% 1,000 ML IV SCH (06:40)
[2020-12-29 06:53] LABS: ALT (SGPT) 11 U/L (8-55); AST (SGOT) 12 U/L (5-34); Albumin 2.8 g/dL (3.4-4.8); Alkaline Phosphatase 111 U/L (40-110); Anion Gap 17 mmol/L (10-20); BUN (Urea Nitrogen) 38 mg/dL (9.8-20.1); Bilirubin, Total 0.6 mg/dL (0.2-1.2); Calc. Creatinine Clearance 66 mL/min (70-130); Calcium 8.6 mg/dL (7.8-10.44); Carbon Dioxide 26 mmol/L (23-31); Chloride 95 mmol/L (98-107); Globulin 3.2 g/dL (2.4-3.5); Glucose 352 mg/dL (80-115); Potassium 3.8 mmol/L (3.5-5.1); Sodium 134 mmol/L (136-145)
[2020-12-29] MEDS: Benzocaine (Dental) 7 GM TUBE TOP PRN (08:01)
[2020-12-29] MEDS: Lantus 1000 UNITS/10 ML VIAL SC SCH ×2 (08:05→20:48)
[2020-12-29] MEDS: Famotidine 20 MG TAB PO SCH (09:24)
[2020-12-29] MEDS: Magnesium Oxide 400 MG TAB PO SCH ×2 (09:24→20:44)
[2020-12-29] MEDS: PARoxetine 20 MG TAB PO SCH (09:24)
[2020-12-29] MEDS: Potassium Chloride 20 MEQ TAB PO SCH (09:25)
[2020-12-29] MEDS: Aluminum & Magnesium Hydroxide 60 ML, diphenhydrAMINE 150 MG, Lidocaine 2% Viscous Solu... SSW SCH ×3 (09:29→20:53)
[2020-12-29] MEDS: Sodium Chloride 0.9% 1,000 ML IV SCH (12:23)
[2020-12-29 15:40] LABS: SARS-CoV-2 PCR by NAA Not Detected (NotDetected)
[2020-12-30] MEDS: Sodium Chloride 0.9% 1,000 ML IV SCH ×2 (01:49→18:20)
[2020-12-30] MEDS: HYDROcodone/Acetaminophen 5/325 mg Tablet PO PRN ×2 (02:02→21:58)
[2020-12-30] MEDS: Levothyroxine Sodium 100 MCG TAB PO SCH (06:18)
[2020-12-30] MEDS: Potassium Chloride 20 MEQ TAB PO SCH (08:48)
[2020-12-30] MEDS: PARoxetine 20 MG TAB PO SCH (08:49)
[2020-12-30] MEDS: Famotidine 20 MG TAB PO SCH ×2 (08:49→20:49)
[2020-12-30] MEDS: Magnesium Oxide 400 MG TAB PO SCH ×2 (08:50→20:49)
[2020-12-30] MEDS: Lantus 1000 UNITS/10 ML VIAL SC SCH ×2 (09:00→21:52)
[2020-12-30 09:58] LABS: #Basophils 0.1 thou/uL (0.0-0.2); #Lymphocytes 0.8 thou/uL (1.20-3.40); #Monocytes 0.6 thou/uL (0.11-0.59); #Neutrophils 7.1 thou/uL (1.40-6.50); %Basophils 0.7 % (0.0-1.0); %Eosinophils 0.4 % (0.0-10.0); %Lymphocytes 9.2 % (21.0-51.0); %Monocytes 7.4 % (0.0-10.0); %Neutrophils 82.3 % (42.0-75.0); Mean Corpuscular HGB CONC 33.2 g/dL (32.0-36.0); Mean Corpuscular Hemoglobin 29.2 pg (27.0-31.0); Mean Corpuscular Volume 87.7 fL (78.0-98.0); Mean Platelet Volume 9.8 fL (7.4-10.4); Platelet Count 66 thou/uL (130-400); RBC Distribution Width 13.7 % (11.5-14.5); Red Blood Cell (RBC) Count 2.76 mill/uL (4.20-5.40); White Blood Cell (WBC) Count 8.6 thou/uL (4.8-10.8)
[2020-12-30 11:00] LABS: Anion Gap 14 mmol/L (10-20); BUN (Urea Nitrogen) 30 mg/dL (9.8-20.1); Calc. Creatinine Clearance 91 mL/min (70-130); Calcium 7.3 mg/dL (7.8-10.44); Carbon Dioxide 27 mmol/L (23-31); Chloride 100 mmol/L (98-107); Glucose 85 mg/dL (80-115); Sodium 137 mmol/L (136-145)
[2020-12-30] MEDS: Aluminum & Magnesium Hydroxide 60 ML, diphenhydrAMINE 150 MG, Lidocaine 2% Viscous Solu... SSW SCH ×3 (11:05→20:48)
[2020-12-30 13:08] VITALS: BMI 33.4
[2020-12-30] MEDS: valACYclovir 500 MG TAB PO SCH ×2 (16:54→23:47)
[2020-12-31] MEDS: Levothyroxine Sodium 100 MCG TAB PO SCH (06:18)
[2020-12-31] MEDS: HumaLOG 300 UNITS/3 ML VIAL SC PRN (06:20)
[2020-12-31] MEDS: valACYclovir 500 MG TAB PO SCH ×2 (08:11→17:55)
[2020-12-31] MEDS: Potassium Chloride 20 MEQ TAB PO SCH ×2 (08:13→09:49)
[2020-12-31] MEDS: Magnesium Oxide 400 MG TAB PO SCH (08:14)
[2020-12-31] MEDS: PARoxetine 20 MG TAB PO SCH (08:14)
[2020-12-31] MEDS: Famotidine 20 MG TAB PO SCH (08:14)
[2020-12-31] MEDS: Aluminum & Magnesium Hydroxide 60 ML, diphenhydrAMINE 150 MG, Lidocaine 2% Viscous Solu... SSW SCH ×2 (09:45→16:37)
[2020-12-31] MEDS ORDERED: Calcium Carbonate 500 MG ChewTAB PO PRN (10:11)
[2020-12-31 16:47] VITALS: BP 140/74; TEMP 98.8
[2020-12-31 17:12] LABS: #Lymphocytes 0.6 thou/uL (1.20-3.40); #Monocytes 0.5 thou/uL (0.11-0.59); #Neutrophils 5.4 thou/uL (1.40-6.50); %Basophils 0.2 % (0.0-1.0); %Eosinophils 0.4 % (0.0-10.0); %Lymphocytes 8.5 % (21.0-51.0); %Monocytes 7.2 % (0.0-10.0); %Neutrophils 83.7 % (42.0-75.0); Mean Corpuscular HGB CONC 33.4 g/dL (32.0-36.0); Mean Corpuscular Hemoglobin 29.5 pg (27.0-31.0); Mean Corpuscular Volume 88.3 fL (78.0-98.0); Mean Platelet Volume 9.3 fL (7.4-10.4); Platelet Count 84 thou/uL (130-400); RBC Distribution Width 13.7 % (11.5-14.5); White Blood Cell (WBC) Count 6.4 thou/uL (4.8-10.8)
[2021-01-01 05:37] LABS: HSV 1 - DNA Positive (Negative); HSV 2 - DNA Negative (Negative)
== END 2020-12-31 18:14 | disposition swing bed (61) | DRG 870 ==
LOC: ERS 22:29 → CCU 12-15 01:17 → 2NO 12-20 10:50 → T4-B 12-27 15:05
PROVIDERS: ADMIT Student in an Organized Health Care Education/Training Program; ATTEND Internal Medicine
PROC: 5A1955Z Respiratory Ventilation, Greater than 96 Consecutive Hours (ICD-10-PCS; principal; 2020-12-15)
PROC: 03HY32Z Insertion of Monitoring Device into Upper Artery, Percutaneous Approach (ICD-10-PCS; 2020-12-15)
PROC: 3E033XZ Introduction of Vasopressor into Peripheral Vein, Percutaneous Approach (ICD-10-PCS; 2020-12-15)
PROC: 5A1D70Z Performance of Urinary Filtration, Intermittent, Less than 6 Hours Per Day (ICD-10-PCS; 2020-12-15)
PROC: 0D9670Z Drainage of Stomach with Drainage Device, Via Natural or Artificial Opening (ICD-10-PCS; 2020-12-15)
DX: A41.51 Sepsis due to Escherichia coli [E. coli] (principal); E10.10 Type 1 diabetes mellitus with ketoacidosis without coma; R65.21 Severe sepsis with septic shock; J96.01 Acute respiratory failure with hypoxia; K85.00 Idiopathic acute pancreatitis without necrosis or infection; I50.21 Acute systolic (congestive) heart failure; G93.41 Metabolic encephalopathy; J18.9 Pneumonia, unspecified organism; E27.2 Addisonian crisis; N17.9 Acute kidney failure, unspecified; E87.1 Hypo-osmolality and hyponatremia; K81.0 Acute cholecystitis; I82.621 Acute embolism and thrombosis of deep veins of right upper extremity; I13.0 Hypertensive heart and chronic kidney disease with heart failure and stage 1 through stage 4 chronic kidney disease, or unspecified chronic kidney disease; N39.0 Urinary tract infection, site not specified; N25.81 Secondary hyperparathyroidism of renal origin; I47.1 Supraventricular tachycardia; Z66 Do not resuscitate; Z20.822 Contact with and (suspected) exposure to COVID-19; E78.5 Hyperlipidemia, unspecified; E03.9 Hypothyroidism, unspecified; N18.30 Chronic kidney disease, stage 3 unspecified; E88.09 Other disorders of plasma-protein metabolism, not elsewhere classified; E11.22 Type 2 diabetes mellitus with diabetic chronic kidney disease; E55.9 Vitamin D deficiency, unspecified; E87.6 Hypokalemia; I48.0 Paroxysmal atrial fibrillation; R13.10 Dysphagia, unspecified; K13.79 Other lesions of oral mucosa; B00.1 Herpesviral vesicular dermatitis; Z79.890 Hormone replacement therapy; Z88.8 Allergy status to other drugs, medicaments and biological substances; Z79.84 Long term (current) use of oral hypoglycemic drugs; Z79.899 Other long term (current) drug therapy; Z90.49 Acquired absence of other specified parts of digestive tract; Z98.890 Other specified postprocedural states; D69.59 Other secondary thrombocytopenia; Z78.1 Physical restraint status; E87.5 Hyperkalemia
CPT/HCPCS: 36415; 36416; 36600; 36620; 71045; 74176; 74177; 76705; 80048; 80053; 80061; 80202; 82010; 82150; 82306; 82330; 82553; 82805; 83605; 83690; 83735; 83880; 83970; 84100; 84145; 84443; 84484; 85014; 85018; 85025; 85049; 85300; 85362; 85379; 85384; 85610; 85730; 86140; 86704; 86706; 86803; 87040; 87340; 87529; 90935; 93005; 93010; 93306; 94002; 94003; 96365; 96366; 96367; 96368; 96375; A4217; C9113; G0257; J0282; J0610; J0692; J1160; J1644; J1650; J1720; J1815; J1940; J2060; J2270; J2405; J3010; J3370; J3475; J3480; J3490; J7042; J7050; J7070; P9047; Q0163; Q9967; U0003; U0005

== ENCOUNTER 2021-02-04 13:47 | Emergency (ER) | payer MEDICARE ==
[2021-02-04 14:41] LABS: #Eosinphils 0.2 thou/uL (0.0-0.7); #Lymphocytes 3.7 thou/uL (1.20-3.40); #Monocytes 0.8 thou/uL (0.11-0.59); #Neutrophils 6.8 thou/uL (1.40-6.50); %Basophils 0.2 % (0.0-1.0); %Eosinophils 1.6 % (0.0-10.0); %Lymphocytes 32.1 % (21.0-51.0); %Monocytes 7.1 % (0.0-10.0); %Neutrophils 59.1 % (42.0-75.0); Hemoglobin 9.6 g/dL (12.0-16.0); Mean Corpuscular HGB CONC 32.6 g/dL (32.0-36.0); Mean Corpuscular Hemoglobin 28.6 pg (27.0-31.0); Mean Corpuscular Volume 87.5 fL (78.0-98.0); Mean Platelet Volume 7.1 fL (7.4-10.4); Platelet Count 435 thou/uL (130-400); RBC Distribution Width 14.5 % (11.5-14.5); Red Blood Cell (RBC) Count 3.37 mill/uL (4.20-5.40); White Blood Cell (WBC) Count 11.5 thou/uL (4.8-10.8)
[2021-02-04 15:15] LABS: ALT (SGPT) 19 U/L (8-55); AST (SGOT) 18 U/L (5-34); Albumin 3.8 g/dL (3.4-4.8); Alkaline Phosphatase 115 U/L (40-110); Anion Gap 17 mmol/L (10-20); BUN (Urea Nitrogen) 29 mg/dL (9.8-20.1); Bilirubin, Total 0.3 mg/dL (0.2-1.2); Calc. Creatinine Clearance 0 mL/min (70-130); Calcium 10.2 mg/dL (7.8-10.44); Carbon Dioxide 23 mmol/L (23-31); Chloride 99 mmol/L (98-107); Globulin 4.1 g/dL (2.4-3.5); Glucose 294 mg/dL (80-115); Potassium 4.2 mmol/L (3.5-5.1); Protein, Total 7.9 g/dL (5.8-8.1); Sodium 135 mmol/L (136-145)
[2021-02-04 18:27] LABS: Troponin I Less than 0.010 ng/mL (< 0.028)
== END 2021-02-04 18:00 ==
LOC: ERS 13:47
DX: R07.9 Chest pain, unspecified (principal); I10 Essential (primary) hypertension; E11.9 Type 2 diabetes mellitus without complications; E78.5 Hyperlipidemia, unspecified; I48.91 Unspecified atrial fibrillation
CPT/HCPCS: 71045; 80053; 84484 ×2; 85025; 93005; 99285; U0003; U0005; 36415

== ENCOUNTER 2021-02-06 11:30 | Emergency (ER) | payer MEDICARE ==
[2021-02-06] MEDS ORDERED: Bacitracin 1 PK ONE (11:51)
[2021-02-06 12:26] LABS: #Eosinphils 0.1 thou/uL (0.0-0.7); #Lymphocytes 3.4 thou/uL (1.20-3.40); #Monocytes 0.5 thou/uL (0.11-0.59); #Neutrophils 11.5 thou/uL (1.40-6.50); %Basophils 0.2 % (0.0-1.0); %Eosinophils 0.5 % (0.0-10.0); %Lymphocytes 21.9 % (21.0-51.0); %Monocytes 3.3 % (0.0-10.0); Hemoglobin 8.2 g/dL (12.0-16.0); Mean Corpuscular HGB CONC 32.8 g/dL (32.0-36.0); Mean Corpuscular Hemoglobin 28.2 pg (27.0-31.0); Mean Corpuscular Volume 85.9 fL (78.0-98.0); Mean Platelet Volume 7.4 fL (7.4-10.4); Platelet Count 323 thou/uL (130-400); RBC Distribution Width 14.5 % (11.5-14.5); Red Blood Cell (RBC) Count 2.92 mill/uL (4.20-5.40); White Blood Cell (WBC) Count 15.5 thou/uL (4.8-10.8)
[2021-02-06 12:41] LABS: INR-International Normal Ratio 1.6; Prothrombin Time 19.4 sec (12.0-14.7)
[2021-02-06 12:42] LABS: PTT 53.6 sec (22.9-36.1)
[2021-02-06 12:46] LABS: ALT (SGPT) 16 U/L (8-55); AST (SGOT) 16 U/L (5-34); Albumin 3.4 g/dL (3.4-4.8); Alkaline Phosphatase 114 U/L (40-110); Anion Gap 16 mmol/L (10-20); BUN (Urea Nitrogen) 27 mg/dL (9.8-20.1); Bilirubin, Total 0.5 mg/dL (0.2-1.2); Calc. Creatinine Clearance 0 mL/min (70-130); Calcium 8.9 mg/dL (7.8-10.44); Carbon Dioxide 20 mmol/L (23-31); Chloride 102 mmol/L (98-107); Glucose 209 mg/dL (80-115); Potassium 4.3 mmol/L (3.5-5.1); Protein, Total 6.4 g/dL (5.8-8.1); Sodium 134 mmol/L (136-145)
[2021-02-06 12:47] LABS: Bacteria/HPF 1+ HPF (None Seen); Bilirubin Negative (Negative); Blood, Urine 2+ (Negative); Clarity Clear (Clear); Glucose, Urine (Dipstick) Normal (Negative); Ketone, Urine Negative (Negative); Leukocyte 500 Leu/uL (Negative); Nitrite Negative (Negative); Protein, Urine (Dipstick) Negative (Neg-Trace); RBC/HPF 0-3 HPF (0-3); Specific Gravity, Urine 1.006 (1.002-1.036); Squamous Epithelial 0-3 HPF (0-3); Urobilinogen Normal mg/dL (Less than 2); WBC/HPF 21-50 HPF (0-3)
== END 2021-02-06 14:30 | disposition short-term general hospital (02) ==
LOC: ERS 11:30
DX: A41.9 Sepsis, unspecified organism (principal); S41.101A Unspecified open wound of right upper arm, initial encounter; I10 Essential (primary) hypertension; E10.9 Type 1 diabetes mellitus without complications; I48.91 Unspecified atrial fibrillation; X58.XXXA Exposure to other specified factors, initial encounter
CPT/HCPCS: 36415; 81003; 81015; 83605; 85610; 85730; 87040; 93005

== ENCOUNTER 2021-03-04 17:04 | Emergency (ER) | payer MEDICARE ==
[2021-03-04] MEDS ORDERED: Lidocaine Viscous Sol 2% 15 ml UD Cup ONE (17:52)
[2021-03-04] MEDS ORDERED: Mag-Al 1200 mg/1200 mg/30 ML UDCUP ONE (17:52)
[2021-03-04] MEDS ORDERED: Pantoprazole 40 MG VIAL ONE (17:52)
[2021-03-04] MEDS ORDERED: Sterile Water 0 ML ONE (17:53)
[2021-03-04 17:58] LABS: Hemoglobin 8.3 g/dL (12.0-16.0); Mean Corpuscular HGB CONC 33.3 g/dL (32.0-36.0); Mean Corpuscular Hemoglobin 28.1 pg (27.0-31.0); Mean Corpuscular Volume 84.5 fL (78.0-98.0); Mean Platelet Volume 7.6 fL (7.4-10.4); Platelet Count 336 thou/uL (130-400); RBC Distribution Width 14.9 % (11.5-14.5); Red Blood Cell (RBC) Count 2.93 mill/uL (4.20-5.40); White Blood Cell (WBC) Count 10.6 thou/uL (4.8-10.8)
[2021-03-04 18:22] LABS: Band 18 % (5-11); Lymphocytes 21 % (21-51); MDiff Complete? YES; Monocytes 3 % (0-10); Neutrophil 57 % (42-75); Platelet Morphology Comment Appears Adequate; Polychromasia SLIGHT = 2-3 cells (100X) (0-2/hpf); Toxic Granulation SLIGHT
[2021-03-04 18:50] LABS: ALT (SGPT) 10 U/L (8-55); AST (SGOT) 20 U/L (5-34); Albumin 2.9 g/dL (3.4-4.8); Alkaline Phosphatase 108 U/L (40-110); Anion Gap 19 mmol/L (10-20); BUN (Urea Nitrogen) 27 mg/dL (9.8-20.1); Bilirubin, Total 0.3 mg/dL (0.2-1.2); Calc. Creatinine Clearance 0 mL/min (70-130); Calcium 8.3 mg/dL (7.8-10.44); Carbon Dioxide 21 mmol/L (23-31); Chloride 97 mmol/L (98-107); Glucose 220 mg/dL (80-115); Lipase 12 U/L (8-78); Potassium 3.6 mmol/L (3.5-5.1); Protein, Total 5.9 g/dL (5.8-8.1); Sodium 133 mmol/L (136-145)
[2021-03-04] MEDS ORDERED: Morphine 4 MG/ML VIAL ONE (20:00)
[2021-03-04] MEDS ORDERED: Ondansetron PF 4 MG/2 ML Vial ONE (20:00)
[2021-03-04] MEDS ORDERED: Magnesium 2 GM/50 ML BAG (IN WATER) ONE ×2 (20:00→21:29)
[2021-03-04] MEDS ORDERED: Meropenem 2 GM in Sodium Chloride 0.9% 100 ML IVPB SCH (21:45)
[2021-03-04 22:19] LABS: Bacteria/HPF 4+ HPF (None Seen); Bilirubin Negative (Negative); Blood, Urine Negative (Negative); Clarity Clear (Clear); Glucose, Urine (Dipstick) Normal (Negative); Ketone, Urine Negative (Negative); Leukocyte 75 Leu/uL (Negative); Nitrite Negative (Negative); Protein, Urine (Dipstick) 20 mg/dL (Neg-Trace); RBC/HPF 0-3 HPF (0-3); Renal Epithelial 0-3 HPF (None Seen); Specific Gravity, Urine 1.045 (1.002-1.036); Squamous Epithelial 0-3 HPF (0-3); Urobilinogen Normal mg/dL (Less than 2); pH, Urine 5.5 (5.0-9.0)
[2021-03-04 22:55] LABS: SARS-CoV-2 NAA Rapid Test Not Detected (NotDetected)
== END 2021-03-05 00:25 | disposition short-term general hospital (02) ==
LOC: ERS 17:04
DX: K85.90 Acute pancreatitis without necrosis or infection, unspecified (principal); K86.1 Other chronic pancreatitis; E83.42 Hypomagnesemia; I10 Essential (primary) hypertension; E10.9 Type 1 diabetes mellitus without complications; E78.5 Hyperlipidemia, unspecified; I48.91 Unspecified atrial fibrillation; Z20.822 Contact with and (suspected) exposure to COVID-19
CPT/HCPCS: 71045; 74177; 80053; 83605; 83690; 83735; 83880; 84484; 85025; 93005; U0002; 36415; 81003; 81015; 96365; 96375; 96376; C9113; J2185; J2270; J2405; J3475; J3490